=== PATIENT | male | born 1970 | race Caucasian/White ===

== ENCOUNTER 2021-05-31 00:58 | Emergency (ER) | payer OTHER, SELFPAY ==
[2021-05-31 01:05] VITALS: BP 108/72; PULSE 84; RESP 18; TEMP 36.4; O2SAT 94; BMI 32.7
--- NOTE | 2021-05-31 01:27 | ECG_ITS ---
[facility] Test Date: 2021-05-31 Pat Name: Jb Perez Department: Room: Gender: Male Psychologist Counseling: : 1970 Requested By: Horacio Figueroa Order Number: [id number] Carie MD: KEVIN ZARAGOZA Measurements Intervals [place] Rate: 82 P: 46 ID: [id number] QRS: 60 QRSD: 115 T: 47 QT: 355 QTc: 416 Interpretive Statements SINUS RHYTHM MODERATE INTRAVENTRICULAR CONDUCTION DELAY [110+ ms QRS DURATION] Compared to ECG 12/07/2018 14:53:35 Intraventricular conduction delay now present Sinus bradycardia no longer present Sinus arrhythmia no longer present Electronically Signed On 05-31-2021 18:34:43 CDT by KEVIN ZARAGOZA [id number]
[2021-05-31] MEDS: ondansetron 2 mg/ML SDV 2 mL 4 MG IVP (01:36)
[2021-05-31] MEDS: famotidine 20 mg/2 mL INJ IVP (01:37)
[2021-05-31] MEDS: diphenhydrAMINE 50 mg/mL SDV 1mL IVP (01:37)
[2021-05-31 01:46] VITALS: BP 118/81; PULSE 73; RESP 18; O2SAT 97
--- NOTE | 2021-05-31 02:53 | ED_ITS ---
HPI - Allergic Reaction General: Chief complaint: Allergic Reaction Stated complaint: Allergic Reaction Itching Time Seen by Provider: 05/31/21 01:15 History of Present Illness: HPI narrative: 51-year-old male who ate dinner around 10 PM. A little over an hour later, he began to notice itching and rash. He then began to have chest tightness and trouble breathing. He had an episode of diarrhea. He says that his lips were burning as well at 1 point. He was incredibly weak by this time. He began to drive himself to the emergency department, during which time he felt worse, and called an ambulance. His symptoms began to improve by the time the ambulance got there, so he finished driving himself here. He presents with itching, redness, and lips burning currently. MD complaint: allergic reaction and hives Onset (ago): hour(s) Exposure: unknown Associated symptoms: Reports difficulty breathing, dizziness, itching, lip swelling, nausea and vomiting; Deny dysphagia or tongue swelling Severity: moderate Treatment prior to arrival: none Review of Systems Const: Denies: fever(s) or chills Eyes: Denies: change in vision Card: Reports: chest pain Resp: Reports: dyspnea and non-productive cough; Denies: wheezing GI: Reports: nausea and vomiting; Denies: dysphagia Neuro: Reports: dizziness All/Imm: Denies: tongue swelling Physical Exam Const: COMMON NORMALS: patient oriented x3 GENERAL APPEARANCE: in distress (Mild) and ill appearing (Mildly) HENMT: COMMON NORMALS: normocephalic and Normal nasal mucous membranes and turbinates present HEAD & SCALP: normocephalic FACE & SINUS: normal facial exam NOSE: Normal nasal mucous membranes and turbinates present MOUTH: tongue normal Neck/C-Spine: GENERAL: Yes normal visual inspection Chest: COMMONS NORMALS: normal inspection of the chest Resp: COMMON NORMALS: No use of accessory muscles and clear to auscultation bilaterally EFFORT & INSPECTION: Yes tachypneic AUSCULTATION: clear to auscultation bilaterally Cardio: COMMON NORMALS: regular rhythm RATE: tachycardic RHYTHM: regular rhythm GI: COMMON NORMALS: Normal to inspection, nondistended, normoactive bowel sounds present and Soft to palpation PALPATION: Yes Soft to palpation Neuro: COMMON NORMALS: patient oriented x3 Skin: NARRATIVE SKIN EXAM: Urticaria present on extremities. Course Vital Signs: Vital signs: Vital Signs Temperature 97.6 F 05/31/21 01:05 Pulse Rate 68 05/31/21 03:41 Respiratory Rate 14 05/31/21 03:41 Blood Pressure 93/64 05/31/21 03:41 Pulse Oximetry 94 05/31/21 03:41 MDM - Allergic Reaction MDM Narrative: Medical decision making narrative: 51-year-old male presenting with an allergic reaction, historically what sounds like anaphylaxis, likely to a food antigen. He was actually improved by the time of his arrival. He was given Solu-Medrol Pepcid and Benadryl here with resolution of his symptoms save a mild itch. He will be allowed home on a decreasing dose of steroid, Benadryl for the next 24 hours, and an EpiPen to use if return of the symptoms comes about. Discharge Plan Discharge Patient Disposition: Home Clinical Impression: Allergic reaction Qualifiers: Encounter type: initial encounter Qualified Code(s): T78.40XA - Allergy, unspecified, initial encounter Condition: Stable Prescriptions: New Medrol (Iglesia) 4 mg tablets,dose pack See Rx Instructions .ROUTE .COMPLEX Qty: 21 RF: 0 Benadryl 25 mg capsule 25 mg PO Q6H PRN (Reason: allergy symptoms) Qty: 30 RF: 0 EpiPen 2-Iglesia 0.3 mg/0.3 mL auto-injector 0.3 mg IM Q10M PRN (Reason: anaphylaxis) Qty: 2 RF: 1 Discharge Orders: Discharge ED (Routine); Ordered 05/31/21 Ordered By: Horacio Hua Discharge Activity: Increase activity as tolerated Patient Instructions: Allergic Reaction Activity Restrictions/Additional Instructions: Return for return of symptoms such as trouble breathing, facial swelling, return of hives, any other concerning symptoms. If you have another reaction, and are having trouble with chest tightness and breathing, consider using your EpiPen. If you do so, you must return to the ER. Coding Level of Care Code ED Drill Press Set Up Operator for Noah Clayton
[2021-05-31 03:41] VITALS: BP 93/64; PULSE 68; RESP 14; O2SAT 94
== END 2021-05-31 03:38 | disposition home or self-care (01) ==
PROVIDERS: Emergency Provider Emergency Medicine
DX: T78.40XA Allergy, unspecified, initial encounter (principal)
CPT/HCPCS: 93005; 96374; 96375; 99283; J1200; J2405; J2930; J3490

== ENCOUNTER 2021-10-07 13:21 | Outpatient (RCR) | payer OTHER, SELFPAY | END 2021-10-25 23:59 | disposition home or self-care (01) | LOC: SPT 13:21 | PROVIDERS: PCP Emergency Medicine Emergency Medical Services; Visit Provider Emergency Medicine Emergency Medical Services | DX: M25.512 Pain in left shoulder (principal) | CPT/HCPCS: 97110; 97161 ==

== ENCOUNTER 2021-10-26 06:00 | Outpatient (RCR) | payer OTHER, SELFPAY | END 2021-11-22 23:59 | disposition home or self-care (01) | LOC: SPT 06:00 | PROVIDERS: PCP Emergency Medicine Emergency Medical Services; Visit Provider Emergency Medicine Emergency Medical Services | DX: M25.512 Pain in left shoulder (principal) | CPT/HCPCS: 97110 ==

== ENCOUNTER 2021-11-23 06:00 | Outpatient (RCR) | payer OTHER, SELFPAY | END 2021-12-23 23:59 | disposition home or self-care (01) | LOC: SPT 06:00 | PROVIDERS: PCP Emergency Medicine Emergency Medical Services; Visit Provider Emergency Medicine Emergency Medical Services | DX: M25.512 Pain in left shoulder (principal) | CPT/HCPCS: 97110; 97140 ==

== ENCOUNTER → 2021-12-20 15:39 | Outpatient (BNVA) | payer OTHER, SELFPAY | PROVIDERS: PCP Emergency Medicine Emergency Medical Services; Referring Provider Emergency Medicine Emergency Medical Services; Visit Provider Specialist | DX: M25.512 Pain in left shoulder (principal) | CPT/HCPCS: 73030 ==

== ENCOUNTER → 2022-04-11 10:47 | Outpatient (BNVA) | payer OTHER, SELFPAY | PROVIDERS: PCP Emergency Medicine Emergency Medical Services; Referring Provider Emergency Medicine Emergency Medical Services; Visit Provider Specialist | DX: S83.289A Other tear of lateral meniscus, current injury, unspecified knee, initial encounter (principal); X58.XXXA Exposure to other specified factors, initial encounter; M25.561 Pain in right knee | CPT/HCPCS: 73560; 73565; 99213 ==

== ENCOUNTER 2022-10-25 00:28 | Emergency (ER) | payer OTHER, SELFPAY ==
[2022-10-25 00:38] VITALS: BP 120/72; PULSE 105; RESP 20; TEMP 36.8; O2SAT 94; BMI 32.5
--- NOTE | 2022-10-25 00:45 | XRR_ITS ---
PROCEDURE INFORMATION: Exam: XR Chest Exam date and time: 10/25/2022 12:57 AM Age: 52 years old Clinical indication: Other: Allergic reaction; Patient HX: Rash to trunk and arms. C/O chest tightness. ; Additional info: Chest pain TECHNIQUE: Imaging protocol: Radiologic exam of the chest. Views: 1 view. COMPARISON: CR XR shoulder LT min 2V* [id number] 12/20/2021 4:21 PM FINDINGS: Lungs: Unremarkable. No consolidation. Pleural spaces: Unremarkable. No pleural effusion. No pneumothorax. Heart/Mediastinum: Unremarkable. No cardiomegaly. Bones/joints: Unremarkable. XR/XR chest 1V portable [id number] IMPRESSION: No acute findings.
--- NOTE | 2022-10-25 00:49 | W.ED.ALLEREA ---
HPI - Allergic Reaction General: Chief complaint: Allergic Reaction Stated complaint: Hive\Lips Numb\Throat Tight Time Seen by Provider: 10/25/22 00:31 Source: patient Mode of arrival: ambulatory Limitations: no limitations History of Present Illness: HPI narrative: 52-year-old male has history of allergic reactions in the past. He states that roughly an hour to hour and a half ago he started to have rash to his trunk and arms he states that he felt like his chest was tightening and his throat was tightening as well with some shortness of breath he did give himself an EpiPen 30 minutes before arrival he states that he is feeling improved his chest pain is resolved his breathing is improved he still does have a rash to his trunk states he has had this in the past he is unsure what he is allergic to his blood pressure here is normal Associated symptoms: Deny abdominal pain, nausea or vomiting Review of Systems Const: Denies: fever(s), chills, body aches or change in appetite Eyes: Denies: blurry vision or eye discomfort ENMT: Denies: throat pain or dental pain Card: Denies: chest pain Resp: Reports: dyspnea and wheezing GI: Denies: abdominal pain, nausea, vomiting or diarrhea : Denies: dysuria Musc: Denies: neck pain or back pain Skin/Breast: Reports: rash and pruritus Neuro: Denies: headache(s) Psych: Denies: depression Deepak/Lymph: Denies: easy bruising All/Imm: Denies: urticaria PFSH ED PFSH: Medical History No pertinent past medical history Social History Smoking and tobacco status: former smoker (4 years ) Physical Exam Const: COMMON NORMALS: no acute distress, patient oriented x3 and healthy appearing HENMT: COMMON NORMALS: normocephalic and atraumatic HEAD & SCALP: normocephalic and atraumatic Eye: COMMON NORMALS: Equal, round and reactive pupils present and EOMs intact bilaterally PUPIL: Yes Equal, round and reactive pupils present Neck/C-Spine: COMMON NORMALS: full ROM and supple Chest: COMMONS NORMALS: normal inspection of the chest and normal palpation of entire chest wall Resp: COMMON NORMALS: normal respiratory effort, No retractions, No use of accessory muscles and clear to auscultation bilaterally AUSCULTATION: clear to auscultation bilaterally Cardio: COMMON NORMALS: regular rate, regular rhythm and No murmurs present (Cardio) RATE: regular rate RHYTHM: regular rhythm GI: COMMON NORMALS: Normal to inspection, nondistended, normoactive bowel sounds present, Soft to palpation, non-tender and no masses PALPATION: Yes Soft to palpation Extremity: COMMON NORMALS: normal to inspection and full ROM Neuro: COMMON NORMALS: patient oriented x3, moves all extremities and no focal motor deficits Psych: COMMON NORMALS: mental status grossly normal, Normal thought process present and cooperative THOUGHT PROCESS: Normal thought process present Skin: COMMON NORMALS: no wounds NARRATIVE SKIN EXAM: Urticarial rash to trunk Course Vital Signs: Vital signs: Vital Signs Temperature 98.3 F 10/25/22 00:38 Pulse Rate 77 10/25/22 02:00 Respiratory Rate 16 10/25/22 02:00 Blood Pressure 106/69 10/25/22 02:00 Pulse Oximetry 94 10/25/22 02:00 Oxygen Delivery Me thod 10/25/22 00:56 MDM - Allergic Reaction Medical Decision Making Patient presents with allergic reaction he did give himself EpiPen at home I did give him Benadryl steroids and Pepcid here he feels much improved his rash is improved as well I believe his chest pain he was having was likely from his allergic reaction no signs of cardiac cause he had gotten better after his appendectomy his EKG here is normal blood work is normal we will prescribe him prednisone for 5 days and will refill his EpiPen he is to follow-up with his PCP in 2 to 4 days return if worsening he understands agrees to plan. Lab Data 10/25/22 00:55 10/25/22 00:55 Radiology Impressions Chest X-Ray 10/25/22 00:45 IMPRESSION: No acute findings. Laboratory Results WBC 13.9 10^3/uL (4.0-10.0) H 10/25/22 00:55 RBC 4.73 10^6/uL (4.1-5.3) 10/25/22 00:55 Hgb 15.0 g/dL (11.7-16.6) 10/25/22 00:55 Hct 45.3 % (42.0-52.0) 10/25/22 00:55 MCV 95.8 fl (80-94) H 10/25/22 00:55 MCH 31.7 pg (28.0-34.0) 10/25/22 00:55 MCHC 33.1 g/dL (30.0-36.0) 10/25/22 00:55 RDW 12.1 % (12.1-15.1) 10/25/22 00:55 Plt Count 331 10^3/cmm (130-400) 10/25/22 00:55 MPV 9.6 fL (7.4-10.4) 10/25/22 00:55 Neut % (Auto) 69.8 % 10/25/22 00:55 Lymph % (Auto) 24.8 % 10/25/22 00:55 Cache % (Auto) 4.5 % 10/25/22 00:55 Eos % (Auto) 0.4 % 10/25/22 00:55 Baso % (Auto) 0.1 % 10/25/22 00:55 Neut # (Auto) 9.66 10^3/uL (1.8-7.7) H 10/25/22 00:55 Lymph # (Auto) 3.4 10^3/uL (0.8-4.8) 10/25/22 00:55 Cache # (Auto) 0.6 10^3/uL (0.2-0.9) 10/25/22 00:55 Eos # (Auto) 0.1 10^3/uL (0.0-0.8) 10/25/22 00:55 Baso # (Auto) 0.0 10^3/uL (0.0-0.1) 10/25/22 00:55 Nucleated RBC % (auto) 0 % 10/25/22 00:55 Nucleated RBCs # 0.0 /100WBC 10/25/22 00:55 Sodium 137 mmol/L (136-145) 10/25/22 00:55 Potassium 3.7 mmol/L (3.5-5.1) 10/25/22 00:55 Chloride 99 mmol/L (98-107) 10/25/22 00:55 Carbon Dioxide 21 mmol/L (22-29) L 10/25/22 00:55 Anion Gap 20.7 (5-19) H 10/25/22 00:55 BUN 29 mg/dL (6-20) H 10/25/22 00:55 Creatinine 1.5 mg/dL (0.7-1.2) H 10/25/22 00:55 GFR Calculation 49.3 mL/min (90-130) L 10/25/22 00:55 Glucose 229 mg/dL (65-115) H 10/25/22 00:55 Calculated Osmolality 297 mOsm/kg (285-295) H 10/25/22 00:55 Calcium 9.0 mg/dL (8.5-10.5) 10/25/22 00:55 Total Bilirubin 0.4 mg/dL (0.15-1.2) 10/25/22 00:55 AST 23 U/L (0-40) 10/25/22 00:55 ALT 27 U/L (0-41) 10/25/22 00:55 Alkaline Phosphatase 81 U/L (40-130) 10/25/22 00:55 Total Protein 7.5 g/dL (6.6-8.7) 10/25/22 00:55 Albumin 4.6 g/dL (3.5-5.2) 10/25/22 00:55 Globulin 2.9 g/dL (1.3-4.6) 10/25/22 00:55 Lipase 42 U/L (13-60) 10/25/22 00:55 EKG Data EKG 1: I personally reviewed and interpreted this EKG as follows: EKG interpretation date: 10/25/22 EKG interpretation time: 00:50 Interpretation: sinus tach hr [address] or t wave abnormalities qrs 109 qtc 398 Discharge Plan Discharge Patient Disposition: Home Clinical Impression: Allergic reaction Condition: Stable Prescriptions: New prednisone 50 mg tablet 50 mg PO DAILY Qty: 5 0RF EpiPen 2-Iglesia 0.3 mg/0.3 mL auto-injector 0.3 mg IM Q20M PRN (Reason: anaphylaxis) Qty: 2 0RF Rx Instructions: not to exceed 6 doses per episode No Action diazepam [Valium] 5 mg tablet 5 mg PO .COMPLEX Qty: 2 0RF Rx Instructions: 5 mg PO 1 tab 1 hour before MRI. Repeat prn 1/2 hour before MRI; Benadryl 25 mg capsule 25 mg PO Q6H PRN (Reason: allergy symptoms) Qty: 30 0RF EpiPen 2-Iglesia 0.3 mg/0.3 mL auto-injector 0.3 mg IM Q10M PRN (Reason: anaphylaxis) Qty: 2 1RF Rx Instructions: do not exceed 3 doses per episode Discharge Orders: Discharge ED (Routine); Ordered 10/25/22 Ordered By: Kat Barr Referrals: Krishna Gómez DO [Primary Care Provider] - 1-3 days Discharge Diet: Advance as tolerated Discharge Activity: Resume usual activity Patient Instructions: General Allergic Reaction (ED) Coding Level of Care Code ED It Program Engagement Director for Chg Fwd Exam Comprehensive
--- NOTE | 2022-10-25 00:50 | ECG_ITS ---
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 Measurements Intervals [place] Rate: 103 P: 57 AR: 140 QRS: 40 QRSD: 109 T: 12 QT: 338 QTc: 443 Interpretive Statements SINUS TACHYCARDIA ABNORMAL RHYTHM ECG Compared to ECG 05/31/2021 01:21:05 Sinus rhythm no longer present Intraventricular conduction delay no longer present Electronically Signed On 10-25-2022 16:03:10 HAT BRAIDER by Darby Aldridge M.D. [id number] f
[2022-10-25 00:56] VITALS: BP 122/80; PULSE 95; RESP 16; O2SAT 94
[2022-10-25] MEDS: ondansetron 2 mg/ML SDV 2 mL 4 MG IVP (00:56)
[2022-10-25] MEDS: diphenhydrAMINE 50 mg/mL SDV 1mL IVP (00:59)
[2022-10-25] MEDS: famotidine 20 mg/2 mL INJ 40 MG IVP (01:03)
[2022-10-25 01:13] LABS: Basophils % 0.1 %; Eosinophils # 0.1 10^3/uL (0.0-0.8); Eosinophils % 0.4 %; Hematocrit 45.3 % (42.0-52.0); Lymphocytes # 3.4 10^3/uL (0.8-4.8); Lymphocytes % 24.8 %; Mean Corpuscular HGB Conc 33.1 g/dL (30.0-36.0); Mean Corpuscular Hemoglobin 31.7 pg (28.0-34.0); Mean Corpuscular Volume 95.8 fl (80-94); Mean Platelet Volume 9.6 fL (7.4-10.4); Monocytes # 0.6 10^3/uL (0.2-0.9); Monocytes % 4.5 %; Neutrophils # 9.66 10^3/uL (1.8-7.7); Neutrophils % 69.8 %; Nucleated Red Blood Cells % 0 %; Platelet Count 331 10^3/cmm (130-400); Red Blood Count 4.73 10^6/uL (4.1-5.3); Red Cell Distribution Width 12.1 % (12.1-15.1); White Blood Count 13.9 10^3/uL (4.0-10.0)
[2022-10-25 01:30] VITALS: BP 99/68; PULSE 81; RESP 18; O2SAT 90
[2022-10-25 01:35] LABS: Alanine Aminotransferase 27 U/L (0-41); Albumin Level 4.6 g/dL (3.5-5.2); Alkaline Phosphatase 81 U/L (40-130); Anion Gap 20.7 (5-19); Aspartate Amino Transferase 23 U/L (0-40); Blood Urea Nitrogen 29 mg/dL (6-20); Carbon Dioxide 21 mmol/L (22-29); Chloride 99 mmol/L (98-107); Globulin 2.9 g/dL (1.3-4.6); Glomerular Filtration Rate 49.3 mL/min (90-130); Glucose 229 mg/dL (65-115); Lipase 42 U/L (13-60); Osmolality Calculated 297 mOsm/kg (285-295); Potassium 3.7 mmol/L (3.5-5.1); Sodium 137 mmol/L (136-145); Total Bilirubin 0.4 mg/dL (0.15-1.2); Total Protein 7.5 g/dL (6.6-8.7)
--- NOTE | 2022-10-25 01:39 | PC.NURSE ---
Pt O2 saturation 89-90, pt placed on 2L NC. Pt O2 sat now 93
[2022-10-25 02:00] VITALS: BP 106/69; PULSE 77; RESP 16; O2SAT 94
== END 2022-10-25 02:18 | disposition home or self-care (01) ==
PROVIDERS: Nurse Practitioner Family; Emergency Provider Emergency Medicine; PCP Emergency Medicine Emergency Medical Services
DX: T78.40XA Allergy, unspecified, initial encounter (principal); Z87.891 Personal history of nicotine dependence
CPT/HCPCS: 71045; 80053; 83690; 85025; 93005; 96374; 96375; 99285; J1200; J2405; J2930; J3490

== ENCOUNTER 2022-10-26 11:07 | Outpatient (CLI) | payer OTHER, SELFPAY ==
--- NOTE | 2022-10-26 11:36 | MR_ITS ---
WS: [id number] MRI LUMBAR SPINE NONCONTRAST TECHNIQUE: Sagittal T1, T2 and STIR imaging. Axial T1 and T2 imaging. CLINICAL INFORMATION: LOW BACK PAIN COMPARISON: None. FINDINGS: Mild lumbar curve. No acute compression. No high-grade central canal stenosis. Tiny annular tear L5-S 1. L1-L2: Normal. L2-L3: Tiny LEFT foraminal protrusion with mild LEFT foraminal narrowing. Spinal canal and RIGHT fora men are patent. L3-L4: Small RIGHT foraminal protrusion with a small annular fissure. Slight impingement on the exiti ng RIGHT L3 nerve root with mild RIGHT foraminal narrowing. LEFT foramen is patent. Spinal canal is p atent. Mild facet arthropathy. L4-L5: Tiny LEFT foraminal protrusion slightly contacts the exiting LEFT L4 nerve root. Mild LEFT for aminal narrowing. Spinal canal and foramen are patent. Moderate facet arthropathy. L5-S1: Mild annular bulging. Tiny annular fissure. Spinal canal and foramen are patent. Moderate face t arthropathy. Visualized pelvic bony structures: Normal. Paravertebral soft tissues: Normal. MR/MR lumbar spine wo con* [id number] IMPRESSION: 1. Mild lumbar curve. No acute compression. No high-grade central canal stenos is. 2. Small RIGHT foraminal protrusion L3-L4 with small annular fissure slightly impinges the exiting RIGHT L3 nerve root. 3. Tiny LEFT foraminal protrusion L4-L5 with mild LEFT L4-L5 foraminal narrowi ng. 4. Tiny LEFT foraminal protrusion L2-L3 with mild LEFT foraminal narrowing wit hout significant nerve root impingement. 5. Mild annular bulging L5-S1 with a small annular fissure. 6. Moderate facet arthropathy L4-L5 and L5-S1.
== END 2022-10-26 11:08 | disposition home or self-care (01) ==
LOC: RAD 11:09
PROVIDERS: PCP Emergency Medicine Emergency Medical Services; Visit Provider Emergency Medicine Emergency Medical Services
DX: Z01.89 Encounter for other specified special examinations (principal)
CPT/HCPCS: 72148

== ENCOUNTER 2023-03-01 14:08 | Outpatient (RCR) | payer OTHER, SELFPAY | END 2023-03-24 23:59 | disposition home or self-care (01) | LOC: SPT 14:08 | PROVIDERS: PCP Emergency Medicine Emergency Medical Services; Visit Provider Emergency Medicine Emergency Medical Services | DX: M54.50 Low back pain, unspecified (principal) | CPT/HCPCS: 97110; 97161 ==

== ENCOUNTER → 2023-03-02 10:36 | Outpatient (BNVA) | payer OTHER, SELFPAY | PROVIDERS: PCP Emergency Medicine Emergency Medical Services; Visit Provider Anesthesiology Pain Medicine | DX: M46.96 Unspecified inflammatory spondylopathy, lumbar region (principal); M46.97 Unspecified inflammatory spondylopathy, lumbosacral region | CPT/HCPCS: 99205 ==

== ENCOUNTER → 2023-12-21 14:49 | Outpatient (BNVA) | payer OTHER, SELFPAY | PROVIDERS: PCP Emergency Medicine Emergency Medical Services; Visit Provider Orthopaedic Surgery | DX: M54.50 Low back pain, unspecified; G89.29 Other chronic pain | CPT/HCPCS: 99204 ==

== ENCOUNTER 2024-02-21 14:49 | Outpatient (CLI) | payer OTHER, SELFPAY ==
--- NOTE | 2024-02-21 14:57 | MR_ITS ---
WS: [id number] MRI LUMBAR SPINE NONCONTRAST HISTORY: LOW BACK PAIN WORSENING COMPARISON: 10/26/2022 TECHNIQUE: Sagittal and axial multisequence imaging is submitted. Very slight increase in thoracic kyphosis. Posterior alignment is normal. There is a small amount of marrow edema in the anterior superior L3 en dplate. This is new since the prior study. No fractures. Disc spaces are relatively well-preserved. Disc spaces and vertebral body heights are well-preserved. Conus terminates normally at L1-2 disc level. L1-L2: Normal. L2-L3: Mild disc bulging. Very shallow LEFT foraminal disc protrusion as seen on the prior examinatio n with no stenosis. The disc protrusion actually appears slightly smaller in size. L3-L4: Mild annular disc bulging. RIGHT foraminal disc protrusion with annular fissure. Similar to th e prior study. Slight impingement upon the exiting RIGHT L3 nerve root. Mild foraminal narrowing. Mil d facet arthritis. L4-L5: Mild annular disc bulging with ligamentum flavum and facet arthritis. Small LEFT foraminal dis c protrusion with annular fissure. Mild LEFT foraminal narrowing. Mild facet arthritis. L5-S1: Mild annular disc bulging tiny annular fissure to the LEFT of midline. Mild facet arthritis. N o stenosis. Paravertebral soft tissues are normal. MR/MR lumbar spine wo con* [id number] IMPRESSION: 1. No high-grade central or foraminal stenosis. No significant progression of degenerative disc disease or stenosis since the prior study. 2. Slight decrease in size of the previously described LEFT L2-3 disc protrusi on. 3. Small RIGHT foraminal disc protrusion at L3-4 with minimal impingement upon the exiting RIGHT L3 nerve root. 4. Mild LEFT foraminal narrowing at L4-5 with a small foraminal disc protrusio n. 5. New focal marrow edema in the superior anterior L3 vertebral body.
== END 2024-02-21 14:50 | disposition home or self-care (01) ==
PROVIDERS: PCP Emergency Medicine Emergency Medical Services; Visit Provider Emergency Medicine Emergency Medical Services
DX: M51.26 Other intervertebral disc displacement, lumbar region (principal); M48.061 Spinal stenosis, lumbar region without neurogenic claudication; R60.0 Localized edema
CPT/HCPCS: 72148

== ENCOUNTER → 2024-03-19 13:48 | Outpatient (BNVA) | payer OTHER, SELFPAY | PROVIDERS: PCP Emergency Medicine Emergency Medical Services; Visit Provider Orthopaedic Surgery | DX: M54.9 Dorsalgia, unspecified (principal); M48.062 Spinal stenosis, lumbar region with neurogenic claudication | CPT/HCPCS: 99214 ==

== ENCOUNTER 2024-05-05 19:33 | Emergency (ER) | payer OTHER, SELFPAY ==
[2024-05-05 19:41] VITALS: BP 124/77; PULSE 77; RESP 18; TEMP 36.1; O2SAT 97; BMI 33.1
--- NOTE | 2024-05-05 20:50 | ED_ITS ---
HPI - Back Pain/Injury General: Chief Complaint: Back Pain/Injury Stated Complaint: Lower back pain Time Seen by Provider: 05/05/24 19:48 History of Present Illness: 53-year-old male patient comes in today with low back pain. Patient states that he was pulling weeds couple days ago and aggravated his back. Patient does have chronic back problems with some intervertebral disc disease and some sciatica. Patient had a recent MRI done. Patient reports no falls or other injuries. Related Data Previous Rx's Medication Instructions Recorded diphenhydramine HCl 25 mg capsule 25 mg PO Q6H PRN allergy symptoms 05/31/21 (Benadryl) #30 caps epinephrine 0.3 mg/0.3 mL 0.3 mg (0.3 mL) IM Q10M PRN 05/31/21 injection, auto-injector (EpiPen anaphylaxis #2 ea 2-Iglesia) epinephrine 0.3 mg/0.3 mL 0.3 mg (0.3 mL) IM Q20M PRN 10/25/22 injection, auto-injector (EpiPen anaphylaxis #2 ea 2-Iglesia) diclofenac sodium 75 mg 75 mg PO BID #20 tabs 05/05/24 tablet,delayed release methocarbamol 750 mg tablet 1,500 mg (2 x 750 mg) PO TID PRN 05/05/24 muscle spasm 7 days #42 tabs prednisone 20 mg tablet 20 mg PO BID 7 days #14 tabs 05/05/24 Allergies Allergy/AdvReac Type Severity Reaction Status Date / Time Sulfa (Sulfonamide Allergy ALGY-Rash Verified 05/05/24 19:43 Antibiotics) Review of Systems General: Reports: 10 or more systems reviewed and unremarkable except in HPI and below Musc: Reports: back pain PFSH ED PFSH: Medical History No pertinent past medical history Social History Smoking and tobacco/nicotine status: former use of tobacco/nicotine (4 years ) Physical Exam Const: COMMON NORMALS: alert HENMT: COMMON NORMALS: normocephalic HEAD & SCALP: normocephalic Neck/C-Spine: COMMON NORMALS: full ROM Resp: COMMON NORMALS: normal respiratory effort Cardio: COMMON NORMALS: regular rate RATE: regular rate Extremity: COMMON NORMALS: normal to inspection Neuro: SENSORIUM/ORIENTATION: Yes alert Skin: COMMON NORMALS: turgor normal GENERAL SKIN EXAM: turgor normal Course Vital Signs: Vital signs: Vital Signs Temperature 97 F L 05/05/24 19:41 Pulse Rate 73 05/05/24 21:20 Respiratory Rate 16 05/05/24 21:20 Blood Pressure 130/78 05/05/24 21:20 Pulse Oximetry 93 05/05/24 21:20 Oxygen Delivery Me thod Room Air 05/05/24 19:41 MDM - Back Pain/Injury Medical Decision Making 53-year-old male patient comes in today for complaints of low back pain. Patient appears nontoxic. Patient appears in mild to moderate pain. Differential diagnosis exacerbation of chronic back pain, intervertebral disc disease, facet arthropathy, sciatica, lumbar strain. Patient was given 40 mg of prednisone x 1, 30 mg ketorolac x 1, and 4 mg of morphine. Patient will be continued on methocarbamol, diclofenac, and prednisone. Patient had improvement of pain after injections and was discharged home with need for follow-up with specialist. No radiology studies performed this visit Discharge Plan Discharge Patient Disposition: Home Clinical Impression: Intervertebral disc disorder, Lumbar stenosis with neurogenic claudication Condition: Stable Prescriptions: New diclofenac sodium 75 mg tablet,delayed release (DR/EC) 75 mg PO BID Qty: 20 0RF prednisone 20 mg tablet 20 mg PO BID 7 Days Qty: 14 0RF methocarbamol 750 mg tablet 1,500 mg PO TID PRN (Reason: muscle spasm) 7 Days Qty: 42 0RF No Action Benadryl 25 mg capsule 25 mg PO Q6H PRN (Reason: allergy symptoms) Qty: 30 0RF EpiPen 2-Iglesia 0.3 mg/0.3 mL auto-injector 0.3 mg IM Q10M PRN (Reason: anaphylaxis) Qty: 2 1RF Rx Instructions: do not exceed 3 doses per episode EpiPen 2-Iglesia 0.3 mg/0.3 mL auto-injector 0.3 mg IM Q20M PRN (Reason: anaphylaxis) Qty: 2 0RF Rx Instructions: not to exceed 6 doses per episode Discharge Orders: Discharge ED (Routine); Ordered 05/05/24 Ordered By: David Mayorga Referrals: Krishna Gómez DO [Primary Care Provider] - Discharge Diet: Usual diet Discharge Activity: Increase activity as tolerated Patient Instructions: Degenerative Disc Disease (ED) Activity Restrictions/Additional Instructions: Try to maintain your normal activity as much as possible. Gentle stretching and range of motion exercises. Follow-up with primary care or specialist for further evaluation and treatment. Return to ER for new concerns. Coding Level of Care Code ED Construction Ironworker for Noah Clayton
[2024-05-05] MEDS: ketorolac 30 mg/mL INJ IM (21:08)
[2024-05-05 21:12] VITALS: RESP 18
[2024-05-05] MEDS: morphine 4 mg/mL SDV 1 mL IM (21:12)
[2024-05-05 21:20] VITALS: BP 130/78; PULSE 73; RESP 16; O2SAT 93
[2024-05-05] MEDS: predniSONE 20 mg Tablet 40 MG PO (21:30)
== END 2024-05-05 21:32 | disposition home or self-care (01) ==
PROVIDERS: Emergency Provider Nurse Practitioner Family; PCP Emergency Medicine Emergency Medical Services
DX: M48.062 Spinal stenosis, lumbar region with neurogenic claudication (principal); Z87.891 Personal history of nicotine dependence
CPT/HCPCS: 96372; 99284; J1885; J2270; J7512

== ENCOUNTER → 2024-06-18 10:00 | Outpatient (BNVA) | payer OTHER, SELFPAY | PROVIDERS: PCP Emergency Medicine Emergency Medical Services; Visit Provider Psychiatry & Neurology Neurology | DX: M54.2 Cervicalgia (principal); G89.29 Other chronic pain; M48.062 Spinal stenosis, lumbar region with neurogenic claudication; G62.9 Polyneuropathy, unspecified; S06.9XAA Unspecified intracranial injury with loss of consciousness status unknown, initial encounter; G44.309 Post-traumatic headache, unspecified, not intractable; G43.019 Migraine without aura, intractable, without status migrainosus; R20.2 Paresthesia of skin; M79.601 Pain in right arm; M79.602 Pain in left arm; S16.1XXA Strain of muscle, fascia and tendon at neck level, initial encounter; S29.019A Strain of muscle and tendon of unspecified wall of thorax, initial encounter; S39.012A Strain of muscle, fascia and tendon of lower back, initial encounter; X58.XXXA Exposure to other specified factors, initial encounter | CPT/HCPCS: 99203; 99204 ==

== ENCOUNTER 2024-08-12 18:46 | Emergency (ER) | payer OTHER, SELFPAY ==
[2024-08-12 18:54] VITALS: BP 126/86; PULSE 89; RESP 18; TEMP 36.4; O2SAT 98
--- NOTE | 2024-08-12 19:12 | W.ED.WOUNDLC ---
HPI - Wound/Laceration General: Chief Complaint: Wound/Laceration Stated Complaint: left hand lac Time Seen by Provider: 08/12/24 19:00 Source: patient Mode of arrival: ambulatory Limitations: no limitations History of Present Illness: Patient is a 54-year-old male who presents the emergency department due to laceration to palmar aspect of left hand prior to arrival. Patient's dog bit him, exudations are up-to-date and it is his personal dog. States this was somewhat provoked, no abnormal symptoms from the dog and rabies vaccination is specifically up-to-date. No distal neurovascular symptoms reported. No foreign body, laceration is to the palmar aspect of the left fourth MCP, no foreign body or contamination. Unknown if tetanus is up-to-date. Extremity Location: Left: hand Patient tetanus UTD: No Context: accidental Associated symptoms: Denies chills, fever(s), nausea or vomiting Treatments prior to arrival: bandage Related Data Home Medications Medication Instructions Recorded Confirmed omega 9-qqj-rnu-fish oil 300 1 cap PO DAILY 06/18/24 06/18/24 mg-1,000 mg capsule (Fish Oil) Previous Rx's Medication Instructions Recorded diphenhydramine HCl 25 mg capsule 25 mg PO Q6H PRN allergy symptoms 05/31/21 (Benadryl) #30 caps epinephrine 0.3 mg/0.3 mL 0.3 mg (0.3 mL) IM Q20M PRN 10/25/22 injection, auto-injector (EpiPen anaphylaxis #2 ea 2-Iglesia) diazepam 5 mg tablet (Valium) 5 mg PO BID PRN anxiety #2 tabs 07/18/24 cyclobenzaprine 10 mg tablet 10 mg PO TID PRN muscle spasm #90 07/22/24 tabs diclofenac sodium 75 mg 75 mg PO BID PRN pain #60 tabs 07/22/24 tablet,delayed release amoxicillin 875 mg-potassium 1 tab PO BID 10 days #20 tabs 08/12/24 clavulanate 125 mg tablet Allergies Allergy/AdvReac Type Severity Reaction Status Date / Time Sulfa (Sulfonamide Allergy ALGY-Rash Verified 06/18/24 09:37 Antibiotics) Review of Systems General: Reports: 10 or more systems reviewed and unremarkable except in HPI and below Const: Denies: fever(s) or chills Card: Denies: chest pain Resp: Denies: dyspnea GI: Denies: abdominal pain, nausea, vomiting or diarrhea Musc: Denies: extremity pain or joint pain Skin/Breast: Reports: new lesions (Dog bite left hand with laceration); Denies: rash, skin pain or skin tenderness Neuro: Denies: headache(s) PFS ED PFSH: Medical History No pertinent past medical history Social History Smoking and tobacco/nicotine status: former use of tobacco/nicotine Physical Exam Const: COMMON NORMALS: no acute distress, average body habitus, patient oriented x3, no limitations, healthy appearing, alert and well nourished HENMT: COMMON NORMALS: normocephalic and atraumatic HEAD & SCALP: normocephalic and atraumatic Neck/C-Spine: COMMON NORMALS: full ROM, no lymphadenopathy, supple and no meningeal signs Resp: COMMON NORMALS: normal respiratory effort, No use of accessory muscles and clear to auscultation bilaterally AUSCULTATION: clear to auscultation bilaterally Cardio: COMMON NORMALS: regular rate and regular rhythm RATE: regular rate RHYTHM: regular rhythm Extremity: COMMON NORMALS: full ROM and capillary refill normal Neuro: COMMON NORMALS: patient oriented x3 SENSORIUM/ORIENTATION: Yes alert MENINGEAL SIGNS: Yes no meningeal signs Skin: COMMON NORMALS: turgor normal NARRATIVE SKIN EXAM: Superficial linear laceration that is measuring about 2.5 cm to palmar aspect of patient's left hand, overlying fourth MCP joint. No active bleeding. No foreign body or contamination. GENERAL SKIN EXAM: turgor normal Procedures Laceration Laceration 1: Site: hand Side (If applicable): left Size (cm): 2.5 Description: linear and clean Depth: simple, single layer Local Anesthetic: lidocaine 2% and with epi Amount of anesthesia used (mL): 3 Pre-repair: wound explored Skin layer closed with: nylon Size (cm): 4-0 Number of sutures: 3 Technique: simple, interrupted Course Vital Signs: Vital signs: Vital Signs Temperature 97.6 F 08/12/24 18:54 Pulse Rate 89 08/12/24 18:54 Respiratory Rate 18 08/12/24 18:54 Blood Pressure 126/86 08/12/24 18:54 Pulse Oximetry 98 08/12/24 18:54 Oxygen Delivery Me thod Room Air 08/12/24 18:54 MDM - Wound/Laceration Medical Decision Making Patient bit by his own dog, vaccinations up-to-date no concern for rabies. Tetanus was updated today. Wound was repaired, see procedure note. He will be started on Augmentin. Return precautions given. No radiology studies performed this visit Discharge Plan Discharge Patient Disposition: Home Clinical Impression: Laceration of left hand Qualifiers: Encounter type: initial encounter Foreign body presence: without foreign body Qualified Code(s): S61.412A - Laceration without foreign body of left hand, initial encounter Condition: Stable Prescriptions: New amoxicillin-pot clavulanate 875-125 mg tablet 1 tab PO BID 10 Days Qty: 20 0RF No Action omega 6-acw-jaa-fish oil [Fish Oil] 300-1,000 mg capsule 1 cap PO DAILY cyclobenzaprine 10 mg tablet 10 mg PO TID PRN (Reason: muscle spasm) Qty: 90 3RF diclofenac sodium 75 mg tablet,delayed release (DR/EC) 75 mg PO BID PRN (Reason: pain) Qty: 60 3RF diazepam [Valium] 5 mg tablet 5 mg PO BID PRN (Reason: anxiety) Qty: 2 0RF Rx Instructions: 1 p.o. 30 minutes to 60 minutes before MRI may repeat x 1 Benadryl 25 mg capsule 25 mg PO Q6H PRN (Reason: allergy symptoms) Qty: 30 0RF EpiPen 2-Iglesia 0.3 mg/0.3 mL auto-injector 0.3 mg IM Q20M PRN (Reason: anaphylaxis) Qty: 2 0RF Rx Instructions: not to exceed 6 doses per episode Discharge Orders: Discharge ED (Routine); Ordered 08/12/24 Ordered By: Navarro Calderon Referrals: Clair Jones MD [Primary Care Provider] - Patient Instructions: Laceration (ED) Activity Restrictions/Additional Instructions: Take Augmentin as prescribed. Sutures out in 5 days. Wound care as discussed, keep wound dry and out of the sun. When you clean, may dab with warm soap and water. Monitor for any severe increase in pain, swelling, discharge, or other signs of infection and return as discussed. Coding Level of Care Code ED Surgical Brace Maker for Noah Clayton
[2024-08-12] MEDS: amoxicillin-clav 875-125 mg Tablet 1 TAB PO (19:23)
[2024-08-12] MEDS: tetanus-dipt-pertussis 0.5 mL SDV IM (19:23)
== END 2024-08-12 20:15 | disposition home or self-care (01) ==
PROVIDERS: Emergency Provider Physician Assistant; PCP Family Medicine
DX: S61.412A Laceration without foreign body of left hand, initial encounter (principal); W54.0XXA Bitten by dog, initial encounter; Z87.891 Personal history of nicotine dependence
CPT/HCPCS: 12001; 90471; 90715; 99283

== ENCOUNTER → 2024-08-27 08:00 | Outpatient (BNVA) | payer OTHER, SELFPAY | PROVIDERS: PCP Family Medicine; Referring Provider Psychiatry & Neurology Neurology; Visit Provider Psychiatry & Neurology Neurology | DX: S39.012A Strain of muscle, fascia and tendon of lower back, initial encounter (principal); R20.2 Paresthesia of skin; M79.601 Pain in right arm; M79.602 Pain in left arm; X58.XXXA Exposure to other specified factors, initial encounter | CPT/HCPCS: 95913 ==

== ENCOUNTER 2025-01-15 10:37 | Outpatient (CLI) | payer OTHER, SELFPAY ==
--- NOTE | 2025-01-15 10:42 | MR_ITS ---
WS: [id number] MRI CERVICAL SPINE NONCONTRAST HISTORY: CERVICAL RADICULOPATHY COMPARISON: None available. Technique: Multiplanar, multisequence noncontrast imaging of the cervical spine. Normal cervical alignment with no compression fracture or significant disc space narrowing. Signal within the cervical cord is normal. Visualized posterior fossa is unremarkable. Craniocervical junction, C1 and C2 relationship, odontoid process and soft tissues are normal. C2-C3: Normal. C3-C4: Very mild osteophytosis. No stenosis. C4-C5: Very mild annular disc bulging and osteophytic ridging with mild facet arthritis. Mild bilateral foraminal stenosis. C5-C6: Normal. C6-C7: Normal. C7-T1: Normal. Paraspinal soft tissue are normal. MR/MR cervical spin wo con* [id number] IMPRESSION: 1. No high-grade central or foraminal stenosis. 2. No signal abnormality within the cord. 3. Very mild disc bulging and osteophytic ridging at C4-5. Minimal bilateral f oraminal stenosis.
--- NOTE | 2025-01-15 11:13 | MR_ITS ---
WS: [id number] MRI THORACIC SPINE noncontrast HISTORY: pain with mobility in upper extremity COMPARISON: None available. TECHNIQUE: Multiplanar sequences are performed in sagittal and axial planes. Mild increase in thoracic kyphosis. No fractures or marrow edema. Normal signal within the thoracic cord. T1-2: Normal. T2-3: Bilateral mild facet arthritis. T3-4: Mild facet arthritis. T4-5: Mild bilateral facet arthritis and mild foraminal narrowing. T5-6: Normal. T6-7: Normal. T7-8: Normal. T8-9: Mild bilateral facet arthritis. Minimal foraminal narrowing. T9-10: Bilateral mild facet arthritis and mild foraminal stenosis. T10-11: Mild facet arthritis and foraminal narrowing. T11-12: Normal. Paravertebral soft tissues are normal. MR/MR thoracic spin wo con* [id number] IMPRESSION: 1. No high-grade central or foraminal stenosis. 2. No signal abnormality within the cord. 3. Mild foraminal narrowing at T4-5, T8-9, T9-10 and T10-11. 4. No large central disc protrusions. Mild facet joint arthritis.
== END 2025-01-15 10:38 | disposition home or self-care (01) ==
PROVIDERS: PCP Family Medicine; Visit Provider Family Medicine
DX: M47.894 Other spondylosis, thoracic region (principal); M40.294 Other kyphosis, thoracic region; M48.04 Spinal stenosis, thoracic region; R93.7 Abnormal findings on diagnostic imaging of other parts of musculoskeletal system; M50.321 Other cervical disc degeneration at C4-C5 level; M25.78 Osteophyte, vertebrae; M47.892 Other spondylosis, cervical region; M48.02 Spinal stenosis, cervical region
CPT/HCPCS: 72141; 72146

== ENCOUNTER 2025-01-17 07:34 | Outpatient (CLI) | payer OTHER, SELFPAY ==
--- NOTE | 2025-01-17 07:40 | MR_ITS ---
WS: [id number] MRI RIGHT FOOT WITHOUT CONTRAST. COMPARISON: None Multiplanar, multisequence imaging is performed without contrast. History: Walking 3 weeks ago and felt pop in foot. Pain weightbearing. Large amount of marrow edema throughout nearly the entire cuboid. Low signal in the very distal cuboid is probably a nondisplaced fracture. This may be related to stress fracture. The cuneiforms and navicular are intact. Metatarsals are normal. Visualized talus and calcaneus are negative. There is a small amount of soft tissue edema over the lateral midfoot at the site of the marrow edema. Lisfranc ligament is intact. All 3 bands are normal. There is normal alignment between the tarsal bones and metatarsals. Peroneal tendon appears normal. Peroneal longus extends posterior to the abnormal cuboid but there is no signal abnormality or tear within the peroneal tendon. MR/MR foot RT wo con* [id number] IMPRESSION: 1. Edema throughout nearly the entire cuboid. Nondisplaced trabecular fracture s likely through the more distal cuboid. Consider stress fracture. 2. Lisfranc ligament is normal. 3. Soft tissue edema along the lateral foot.
== END 2025-01-17 07:35 | disposition home or self-care (01) ==
PROVIDERS: PCP Family Medicine; Visit Provider Family Medicine
DX: Z01.89 Encounter for other specified special examinations (principal); R93.6 Abnormal findings on diagnostic imaging of limbs; R60.0 Localized edema
CPT/HCPCS: 73718

== ENCOUNTER → 2025-02-11 13:27 | Outpatient (BNVA) | payer OTHER, SELFPAY | PROVIDERS: PCP Family Medicine; Visit Provider Podiatrist Foot & Ankle Surgery | DX: S92.214A Nondisplaced fracture of cuboid bone of right foot, initial encounter for closed fracture (principal); M20.21 Hallux rigidus, right foot; X58.XXXA Exposure to other specified factors, initial encounter | CPT/HCPCS: 73630 ==

== ENCOUNTER 2025-02-11 13:59 | Outpatient (CLI) | payer OTHER, SELFPAY | END 2025-02-11 14:00 | disposition home or self-care (01) | LOC: SPT 13:59 | PROVIDERS: PCP Family Medicine; Visit Provider Podiatrist Foot & Ankle Surgery | DX: Z46.89 Encounter for fitting and adjustment of other specified devices (principal); S92.211D Displaced fracture of cuboid bone of right foot, subsequent encounter for fracture with routine healing; X58.XXXD Exposure to other specified factors, subsequent encounter | CPT/HCPCS: L4361 ==

== ENCOUNTER 2025-03-10 01:14 | Inpatient (IN) | payer OTHER, SELFPAY ==
[2025-03-10] VITALS (21 sets, daily range): BP systolic 90–166; BP diastolic 48–77; PULSE 61–91; RESP 11–18; TEMP 36.4–37.2; O2SAT 92–98; BMI 35.6; BMI 33.7
[2025-03-10 01:57] LABS: Basophils # 0.1 10^3/uL (0.0-0.1); Basophils % 0.3 %; Eosinophils % 0.2 %; Hematocrit 40.9 % (37-53); Lymphocytes # 1.4 10^3/uL (0.8-4.8); Lymphocytes % 8.5 %; Mean Corpuscular Hemoglobin 31.7 pg (27-33); Mean Corpuscular Volume 93.2 fl (82-101); Mean Platelet Volume 9.6 fL (7.4-10.4); Monocytes # 0.6 10^3/uL (0.2-0.9); Monocytes % 3.4 %; Neutrophils # 14.21 10^3/uL (1.8-7.7); Neutrophils % 87.2 %; Nucleated Red Blood Cells % 0 %; Platelet Count 266 10^3/cmm (157-399); Red Blood Count 4.39 10^6/uL (3.85-5.65); White Blood Count 16.31 10^3/uL (3.29-11.43)
[2025-03-10] MEDS: ondansetron 2 mg/ML SDV 2 mL 4 MG IVP (02:06)
[2025-03-10] MEDS: morphine 4 mg/mL SDV 1 mL IVP ×3 (02:07→11:13)
[2025-03-10] MEDS: lidocaine 2% viscous 15 ML, aluminum-mag hydrox-simethicon 30 ML, sucralfate oral liq 1 GM PO (02:09)
[2025-03-10 02:12] LABS: Alanine Aminotransferase 30 U/L (0-41); Albumin Level 4.5 g/dL (3.5-5.2); Alkaline Phosphatase 74 U/L (40-130); Anion Gap 17.9 (5-19); Aspartate Amino Transferase 20 U/L (0-40); Blood Urea Nitrogen 14 mg/dL (6-20); Calcium 9.6 mg/dL (8.5-10.5); Carbon Dioxide 25 mmol/L (22-29); Chloride 100 mmol/L (98-107); Creatinine Clr Calc Pharmacy 137.4944; Globulin 3.1 g/dL (1.3-4.6); Glomerular Filtration Rate 88.3 mL/min (90-130); Glucose 135 mg/dL (65-115); Lipase 29 U/L (13-60); Osmolality Calculated 291 mOsm/kg (285-295); Potassium 3.9 mmol/L (3.5-5.1); Sodium 139 mmol/L (136-145); Total Bilirubin 0.3 mg/dL (0.15-1.2); Total Protein 7.6 g/dL (6.6-8.7)
[2025-03-10] MEDS: sodium chloride 0.9% 1,000 ML 999 ML IV (02:14)
--- NOTE | 2025-03-10 02:14 | ED_ITS ---
HPI - Abdominal Pain 2 General: Chief Complaint: Abdominal Pain Stated Complaint: V\ABD Pain Time Seen by Provider: 03/10/25 01:39 History of Present Illness: 54-year-old male gentleman with epigastr ic pain, multiple episodes of vomiting since around 1 PM yesterday. No fever. No diarrhea. No blood in the stool. No history of abdominal surgery. Related Data Home Medications ?Medication ?Instructions ?Recorded ?Confirmed omega 8-mvd-vse-fish oil 300 1 cap PO DAILY 06/18/24 0 02/11/25 mg-1,000 mg capsule (Fish Oil) Previous Rx's ?Medication ?Instructions ?Recorded diphenhydramine HCl 25 mg capsule 25 mg PO Q6H PRN all ergy symptoms 05/31/21 (Benadryl) #30 caps epinephrine 0.3 mg/0.3 mL 0.3 mg (0.3 mL) IM Q20M PRN 10/25/22 injection, auto-injector (EpiPen anaphylaxis #2 ea 2-Iglesia) cyclobenzaprine 10 mg tablet 10 mg PO TID PRN muscle s pasm #90 07/22/24 tabs diclofenac sodium 75 mg 75 mg PO BID PRN pain #60 ta bs 07/22/24 tablet,delayed release CAM walker #1 ea 02/11/25 orthopedic shoes and custom #2 ea 02/11/25 orthotics Allergies Allergy/AdvReac Type Severity Reaction Status Date / Time Sulfa (Sulfonamide Allergy ALGY-Rash Verified 03/10/25 01:26 Antibiotics) PFSH ED 2 PFSH: Medical History No pertinent past medical history Social History Smoking and tobacco/nicotine status: former use of tobacco/nicotine Physical Exam 2 Const: COMMON NORMALS: no acute distress GENERAL APPEARANCE: cooperative; not ill appearing and not frail appearing HENMT: COMMON NORMALS: normocephalic, atraumatic and Normal external nose present HEAD & SCALP: normocephalic and atraumatic FACE & SINUS: normal facial exam and face symmetric NOSE: Normal external nose present Eye: COMMON NORMALS: Equal, round and reactive pupils present and EOMs intact bilaterally PUPIL: Yes Equal, round and reactive pupils present Neck/C-Spine: GENERAL: Yes trachea midline Chest: CHEST: Yes Symmetrical chest wall rise Resp: COMMON NORMALS: normal respiratory effort, No retractions, No use of accessory muscles and clear to auscultation bilaterally AUSCULTATION: clear to auscultation bilaterally Cardio: COMMON NORMALS: regular rate and regular rhythm RATE: regular rate RHYTHM: regular rhythm GI: COMMON NORMALS: Normal to inspection, nondistended, normoactive bowel sounds present PALPATION: Yes Tenderness to palpation present (GI) (Epigastric) Details: RLQ and Yes Guarding due to palpation present (GI) Extremity: COMMON NORMALS: no pedal edema Neuro: EARNESTINE COMA SCALE: document GCS findings Grethel coma scale eye opening: Spontaneous Earnestine coma scale verbal response: Orientated Grethel coma scale motor response: Obey commands Earnestine coma scale total score: 15 S ENSORY EXAM: Yes extremities (intact) Psych: COMMON NORMALS: speech normal SPEECH: Yes normal speech Skin: COMMON NORMALS: no rashes or lesions noted GENERAL SKIN EXAM: no rashes or lesions noted Course 2 Vital Signs: Vital signs: Vital Signs Temperature 98.1 F 03/10/25 01:16 Pulse Rate 73 03/10/25 04:09 Respiratory Rate 15 03/10/25 04:09 Blood Pressure 131/59 03/10/25 04:09 Pulse Oximetry 94 03/10/25 04:09 Oxygen Delivery Me thod Room Air 03/10/25 02:15 MDM - Abdominal Pain Medical Decision Making Patient is afebrile. Vitals are normal. White blood cell count is 16. CRP is 3. CT abdomen pelvis was read as nonacute. By my measurement, what appears to be the appendix measures 11 mm, which is enlarged. The patient has intractable pain at this point, continues to be nauseated. Spoke with surgery. Plan is to observe this morning, surgery will evaluate, Zosyn IV every 8. Antiemetics and pain medication, IV fluid, n.p.o. Lab Data 03/10/25 01:44 03/10/25 01:44 Labs/Radiology: Radiology Impressions Abdomen/Pelvis CT 03/10/25 02:15 IMPRESSION: No acute pathologic findings in the abdomen/pelvis. Laboratory Results WBC 16.31 10^3/uL (3.29-11.43) H 03/10/25 01:44 RBC 4.39 10^6/uL (3.85-5.65) 03/10/25 01:44 Hgb 13.90 g/dL (11.27-16.99) 03/10/25 01:44 Hct 40.9 % (37-53) 03/10/25 01:44 MCV 93.2 fl (82-101) 03/10/25 01:44 MCH 31.7 pg (27-33) 03/10/25 01:44 MCHC 34.0 g/dL (30-55) 03/10/25 01:44 RDW 12.0 % (12.1-15.1) L 03/10/25 01:44 Plt Count 266 10^3/cmm (157-399) 03/10/25 01:44 MPV 9.6 fL (7.4-10.4) 03/10/25 01:44 Neut % (Auto) 87.2 % 03/10/25 01:44 Lymph % (Auto) 8.5 % 03/10/25 01:44 [place] % (Auto) 3.4 % 03/10/25 01:44 Eos % (Auto) 0.2 % 03/10/25 01:44 Baso % (Auto) 0.3 % 03/10/25 01:44 Neut # (Auto) 14.21 10^3/uL (1.8-7.7) H 03/10/25 01:44 Lymph # (Auto) 1.4 10^3/uL (0.8-4.8) 03/10/25 01:44 [place] # (Auto) 0.6 10^3/uL (0.2-0.9) 03/10/25 01:44 Eos # (Auto) 0.0 10^3/uL (0.0-0.8) 03/10/25 01:44 Baso # (Auto) 0.1 10^3/uL (0.0-0.1) 03/10/25 01:44 Nucleated RBC % (auto) 0 % 03/10/25 01:44 Nucleated RBCs # 0.0 /100WBC 03/10/25 01:44 Sodium 139 mmol/L (136-145) 03/10/25 01:44 Potassium 3.9 mmol/L (3.5-5.1) 03/10/25 01:44 Chloride 100 mmol/L (98-107) 03/10/25 01:44 Carbon Dioxide 25 mmol/L (22-29) 03/10/25 01:44 Anion Gap 17.9 (5-19) 03/10/25 01:44 BUN 14 mg/dL (6-20) 03/10/25 01:44 Creatinine 0.9 mg/dL (0.7-1.2) 03/10/25 01:44 GFR Calculation 88.3 mL/min (90-130) L 03/10/25 01:44 Glucose 135 mg/dL (65-115) H 03/10/25 01:44 Calculated Osmolality 291 mOsm/kg (285-295) 03/10/25 01:44 Calcium 9.6 mg/dL (8.5-10.5) 03/10/25 01:44 Total Bilirubin 0.3 mg/dL (0.15-1.2) 03/10/25 01:44 AST 20 U/L (0-40) 03/10/25 01:44 ALT 30 U/L (0-41) 03/10/25 01:44 Alkaline Phosphatase 74 U/L (40-130) 03/10/25 01:44 C-Reactive Protein 3.0 mg/L (0.0-4.9) 03/10/25 01:44 Total Protein 7.6 g/dL (6.6-8.7) 03/10/25 01:44 Albumin 4.5 g/dL (3.5-5.2) 03/10/25 01:44 Globulin 3.1 g/dL (1.3-4.6) 03/10/25 01:44 Lipase 29 U/L (13-60) 03/10/25 01:44 Urine Color Yellow (Yellow) 03/10/25 03:22 Urine Appearance Cloudy (CLEAR) A 03/10/25 03:22 Urine pH 8.5 (5-7) A 03/10/25 03:22 Ur Specific [place] 1.035 (1.005-1.030) H 03/10/25 03:22 Urine Protein Negative (Negative) 03/10/25 03:22 Urine Glucose (UA) Negative (Normal) 03/10/25 03:22 Urine Ketones Negative (Negative) 03/10/25 03:22 Urine Blood Negative (Negative) 03/10/25 03:22 Urine Nitrate Negative (Negative) 03/10/25 03:22 Urine Bilirubin Negative (Negative) 03/10/25 03:22 Urine Urobilinogen 0.2 mg/dL (Negative) 03/10/25 03:22 Ur Leukocyte Esterase Negative (Negative) 03/10/25 03:22 Urine RBC 0-2 /hpf (0-2) 03/10/25 03:22 Urine WBC 0-5 /hpf (0-5) 03/10/25 03:22 Ur Squamous Epith Cells 0-5 /hpf (0-5) 03/10/25 03:22 Amorphous Sediment Not Reportable 03/10/25 03:22 Urine Bacteria None seen /hpf (NONE) 03/10/25 03:22 Hyaline Casts 0-4 /lpf H 03/10/25 03:22 All radiology interpretation(s) finalized by discharge Discharge Plan Discharge Patient Disposition: Placed in Observation Clinical Impression: Abdominal pain Coding Level of Care Code ED Stable Helper for Noah Clayton
--- NOTE | 2025-03-10 02:15 | CTR_ITS ---
PROCEDURE INFORMATION: Exam: CT Abdomen And Pelvis With Contrast Exam date and time: 03/10/2025 2:26 AM Age: 54 years old Clinical indication: Nausea and vomiting; Abdominal pain; Epigastric pain with n/v; Additional info: Epigastric abdominal pain TECHNIQUE: Imaging protocol: Computed tomography of the abdomen and pelvis with contrast. Radiation optimization: All CT scans at this facility use at least one of these dose optimization techniques: automated exposure control; mA and/or kV adjustment per patient size (includes targeted exams where dose is matched to clinical indication); or iterative reconstruction. Contrast material: OMNI 350; Contrast volume: 100 ml; Contrast route: INTRAVENOUS (IV); COMPARISON: MR thoracic spin wo con* [id number] 01/15/2025 11:35 AM RADIATION DOSE METRICS: Total DLP (mGy-cm): 1116.26 FINDINGS: Lungs: Visualized lung bases are clear. Liver: The liver is unremarkable. Gallbladder and biliary ducts: The gallbladder is unremarkable. No biliary ductal dilatation. Pancreas: Mild atrophy of the pancreas. No pancreatic ductal dilation. Spleen: The spleen is unremarkable. Adrenal glands: The adrenal glands are unremarkable. Kidneys and ureters: Kidneys are normal. No hydronephrosis or nephrolithiasis. Stomach and bowel: No evidence of bowel obstruction. Appendix: No evidence of acute appendicitis. Intraperitoneal space: No significant free fluid in the abdomen or pelvis. No extraluminal free air. Vasculature: Mild scattered calcific atheromatous disease of the abdominal aorta and its major branches. No abdominal aortic aneurysm. Lymph nodes: No distinct pathologically enlarged lymphadenopathy. Urinary bladder: Urinary bladder is within normal limits. Reproductive: Visualized reproductive structures are within normal limits. Bones/joints: No acute osseous findings. Soft tissues: Small bilateral fat containing inguinal hernias. CT/CT abdomen pelvis w con* [id number] IMPRESSION: No acute pathologic findings in the abdomen/pelvis.
[2025-03-10] MEDS: iohexol 350 mg/mL 500 mL Btl (per mL) IV (02:27)
[2025-03-10 03:30] LABS: Bilirubin Urine Negative (Negative); Blood Urine Negative (Negative); Glucose Urine UA Negative (Normal); Ketones Urine Negative (Negative); Leukocyte Esterase Urine Negative (Negative); Nitrate Urine Negative (Negative); Protein Urine Negative (Negative); Urine Appearance Cloudy (CLEAR); Urine Color Yellow (Yellow); Urobilinogen Urine 0.2 mg/dL (Negative); pH Urine 8.5 (5-7)
[2025-03-10 03:34] LABS: Add Urine Microscopic? YES; Bacteria Urine None Seen /hpf; Hyaline Casts Urine 0-4 /lpf; RBC Urine 0-2 /hpf (0-2); Squamous Epithelial Cell Urine 0-5 /hpf (0-5); WBC Urine 0-5 /hpf (0-5)
[2025-03-10] MEDS: ketorolac 30 mg/mL INJ IVP (03:34)
[2025-03-10 03:36] LABS: Specific Gravity, Urine 1.035 (1.005-1.030)
[2025-03-10] MEDS: piperacillin-tazobactam 3.375 GM in sodium chloride 0.9% (plus) 50 ML IV ×3 (05:35→20:37)
[2025-03-10] MEDS: lactated ringers 1,000 ML 125 ML IV (06:12)
--- NOTE | 2025-03-10 07:22 | PC.PHAR ---
Addendum entered by Marlen Yang 03/10/25 08:56: [facility] Added all meds on list to pts' chart. Original Note: [facility] 03/10/25 7:20am for when they arrive at 8am
--- NOTE | 2025-03-10 08:04 | PC.PHAR ---
Pt states only takes [facility]. He does not know what strength. [facility] 03/10/25 8:05am
--- NOTE | 2025-03-10 09:45 | PM.HP ---
Providers/Chief Complaint Admitting Physician: Denis Young MD Primary Care Provider: Clair Jones MD Chief Complaint: V\ABD Pain History of Present Illness Jb Perez is a 54 year old male who presented with 12 hours of right lower quadrant pain. Tender to palpation right lower quadrant. No Rovsing. No psoas. White count 16,000. Afebrile. CT scan demonstrated a large appendix but no periappendiceal fat stranding. Medications/Allergies Home Medications ?Medication ?Instructions ?Recorded ?Confirmed ?Last Taken ?Type epinephrine 0.3 mg/0.3 mL 0.3 mg (0.3 mL) IM Q20M PRN 10/25/22 03/10/25 Unknown Rx injection, auto-injector (EpiPen anaphylaxis #2 ea 2-Iglesia) omega 4-icf-whq-fish oil 300 1 cap PO DAILY 06/18/24 03/10/25 Unknown History mg-1,000 mg capsule (Fish Oil) cyclobenzaprine 10 mg tablet 10 mg PO TID PRN muscle spasm #90 07/22/24 03/10/25 Unknown Rx tabs diclofenac sodium 75 mg 75 mg PO BID PRN pain #60 tabs 07/22/24 03/10/25 Unknown Rx tablet,delayed release CAM walker #1 ea 02/11/25 03/10/25 Unknown Rx orthopedic shoes and custom #2 ea 02/11/25 03/10/25 Unknown Rx orthotics allopurinol 100 mg tablet 100 mg PO DAILY 03/10/25 03/10/25 Unknown History ezetimibe 10 mg tablet 10 mg PO DAILY 03/10/25 03/10/25 Unknown History famotidine 20 mg tablet 20 mg PO BID 03/10/25 03/10/25 Unknown History gabapentin 300 mg capsule 300 mg PO TID 03/10/25 03/10/25 Unknown History Allergies Allergy/AdvReac Type Severity Reaction Status Date / Time Sulfa (Sulfonamide Allergy ALGY-Rash Verified 03/10/25 01:26 Antibiotics) PFSH Acute PFSH: Medical History No pertinent past medical history Social History Smoking and tobacco/nicotine status: former use of tobacco/nicotine Vitals/I&O/Wt Last Vital Signs Temp 98.6 F 03/10/25 07:24 Pulse 72 03/10/25 07:24 Resp 17 03/10/25 07:24 BP 135/68 03/10/25 07:24 Pulse Ox 95 03/10/25 07:24 O2 Del Method Room Air 03/10/25 07:24 03/09/25 03/10/25 03/10/25 22:59 06:59 14:59 Intake Total 1050 / 1050 Balance 1050 / 1050 Weight last 48 hrs Weight 270 lb Weight 285 lb Physical Exam Narrative: Chest: Unlabored breathing room air. No lymphadenopathy. Heart: Regular rate and rhythm. Abdomen: Soft, tender right lower quadrant, nondistended. No masses or lymphadenopathy. Data 03/10/25 01:44 03/10/25 01:44 A&P Assessment and plan (1) Appendicitis: Plan 54-year-old male who presented with 12 hours of right lower quadrant pain. Had a discussion with the patient regarding CT scan findings as well as his clinical presentation and lab findings. Clinical picture most consistent with acute appendicitis. Discussed risk and benefits and patient agreed to proceed with laparoscopic appendectomy possible open. PDMP PDMP Reviewed: Not Reviewed Attestations Medical Necessity Statement*: IV fluids, IV pain meds, IV antibiotics Coding Level of Care Code 64000 Diagnoses Appendicitis K37
--- NOTE | 2025-03-10 13:05 | P.ANESASSM_ITS ---
Pre-Anesthetic Assessment Height/Weight: Height 6 ft 3 in Weight 270 lb Temp Pulse Resp BP Pulse Ox O2 Del Method 98.6 F 72 18 135/68 95 Room Air 03/10/25 07:24 03/10/25 07:24 03/10/25 11:13 03/10/25 07:24 03/10/25 07:24 03/10/25 07:24 Preop Diagnosis: Acute appendicitis Operation Date: 03/10/25 14:30 Proposed Procedures p Laparoscopic Appendectomy-possible open(Not Applicable) - Denis Young MD Was Beta Rachel taken within 24 hours: N/A Was Clonidine taken within 24 hours: N/A Social No alcohol and No tobacco Exam alert, oriented x 3, clear to auscultation bilaterally and regular rate & rhythm Airway Submandibular: within normal limits Cervical ROM: within normal limits Mallampati: Class III Comments: Comments: Very poor dentition, loose upper front tooth Anesthetic Plan ASA status: 3 Anesthesia: General Other: Patient admitted this morning with acute appendicitis No prior issues with anesthesia other than having a tooth that was a loose fall out NPO since yesterday afternoon History of GERD, on chronic Pepcid MAX, occasional CPAP Labs reviewed, leukocytosis noted EKG showing sinus tachycardia Plan for GETA with video laryngoscopy Medications/Allergies Home Medications ?Medication ?Instructions ?Recorded ?Confirmed ?Last Taken ?Type epinephrine 0.3 mg/0.3 mL 0.3 mg (0.3 mL) IM Q20M PRN 10/25/22 03/10/25 Unknown Rx injection, auto-injector (EpiPen anaphylaxis #2 ea 2-Iglesia) omega 8-pqj-rdr-fish oil 300 1 cap PO DAILY 06/18/24 0 03/10/25 Unknown History mg-1,000 mg capsule (Fish Oil) cyclobenzaprine 10 mg tablet 10 mg PO TID PRN muscle s pasm #90 07/22/24 03/10/25 Unknown Rx tabs diclofenac sodium 75 mg 75 mg PO BID PRN pain #60 ta bs 07/22/24 03/10/25 Unknown Rx tablet,delayed release CAM walker #1 ea 02/11/25 03/10/25 Unkn own Rx orthopedic shoes and custom #2 ea 02/11/25 03/10/25 Un known Rx orthotics allopurinol 100 mg tablet 100 mg PO DAILY 03/10/25 Unknown History ezetimibe 10 mg tablet 10 mg PO DAILY 03/10/2502/23 Unknown History famotidine 20 mg tablet 20 mg PO BID 03/10/25 Unknown History gabapentin 300 mg capsule 300 mg PO TID 03/10/2503/10 Unknown History Allergies Allergy/AdvReac Type Severity Reaction Status Date / Time Sulfa (Sulfonamide Allergy ALGY-Rash Verified 03/10/25 01:26 Antibiotics) Current Medications Generic Name Dose Route Start Last Admin Trade Name Freq PRN Reason Stop Dose Admin Lactated Ringer's 1,000 mls @ 125 mls/hr 03/10/25 05:49 03/10/25 06:12 Lactated Ringers IV 125 mls/hr .Q8H LIZBETH Administration Morphine Sulfate 4 mg 03/10/25 05:49 03/10/25 11:13 Morphine 4 Mg/Ml Sdv 1 Ml IVP 4 mg Q4H PRN Administration SEVERE PAIN PFSH Anesthesia Medical History No pertinent past medical history Social History Smoking and tobacco/nicotine status: former use of tobacco/nicotine Data Anesthesia 03/10/25 01:44 03/10/25 01:44 Short CBC 03/10/25 Range/Units 01:44 WBC 16.31 H (3.29-11.43) 10^3/uL Hgb 13.90 (11.27-16.99) g/dL Hct 40.9 (37-53) % MCV 93.2 (82-101) fl Plt Count 266 (157-399) 10^3/cmm Neut % (Auto) 87.2 % Neut # (Auto) 14.21 H (1.8-7.7) 10^3/uL BMP 03/10/25 01:44 Sodium 139 Potassium 3.9 Chloride 100 Carbon Dioxide 25 BUN 14 Creatinine 0.9 Glucose 135 H Calcium 9.6 Liver Function 03/10/25 Range/Units 01:44 Total Bilirubin 0.3 (0.15-1.2) mg/dL AST 20 (0-40) U/L ALT 30 (0-41) U/L Alkaline Phosphatase 74 (40-130) U/L Albumin 4.5 (3.5-5.2) g/dL Urine 03/10/25 Range/Units 03:22 Urine Color Yellow (Yellow) Urine Appearance Cloudy A (CLEAR) Urine pH 8.5 A (5-7) Ur Specific [place] 1.035 H (1.005-1.030) Urine Protein Negative (Negative) Urine Glucose (UA) Negative (Normal) Urine Ketones Negative (Negative) Urine Nitrate Negative (Negative) Urine Bilirubin Negative (Negative) Ur Leukocyte Esterase Negative (Negative) Urine RBC 0-2 (0-2) /hpf Urine WBC 0-5 (0-5) /hpf [facility] 03/10/25 01:44 C-Reactive Protein 3.0
[2025-03-10] MEDS: sodium chloride 0.9% 1,000 ML 30 ML IV (14:03)
[2025-03-10] MEDS: BUPivacaine 0.25% INJ 10 mL INJECTION (14:53)
[2025-03-10] MEDS: lidocaine-epi 1% 20 mL INJ 10 ML INJECTION (14:53)
--- NOTE | 2025-03-10 15:17 | PM.OP ---
Operative Report Date of procedure: March 10, 2025 Pre-op diagnosis: Uncomplicated appendicitis Post-op diagnosis: Perforated appendicitis Post-op findings: Perforated appendicitis. Phlegmonous changes encasing the tip of the appendix and in the right paracolic gutter. Unable to dissect appendix safely since it was densely adhered to the cecum and retroperitoneum. Procedure done: Diagnostic laparoscopy. Peritoneal drain placement. Implants: N/A Specimens removed/disposition: None Pathology: none sent Surgeon: Denis Young MD Audioprosthologist: N/A Anesthesia: General Estimated blood loss (mL): 10 Complications: N/A Findings: Perforated appendicitis. Phlegmonous changes encasing the tip of the appendix and in the right paracolic gutter. Unable to dissect appendix safely since it was densely adhered to the cecum and retroperitoneum. Condition: stable Disposition: observation Brief History: 54-year-old male who presented with right lower quadrant pain. Leukocytosis of 16,000. CT scan showed a large appendix but no definitive evidence of acute appendicitis. Clinical picture most consistent with acute appendicitis. Discussed risk and benefits and patient agreed to proceed with laparoscopic appendectomy, possible open. Procedure: After having a discussion about risks and benefits and obtaining consent from POA, patient was brought to the OR. SCDs were functioning prior to intubation. Zosyn was given prior to incision. General anesthesia was administered. Arms were tucked. A amaya catheter was placed. The abdomen was prepped and draped in the usual sterile fashion. Insufflation was achieved using a Veress needle at Willingham's point (15mmHg). A 5mm port was placed at the umbilicus using an optical view port. Then a 5mm port was placed suprapubically, and a 12mm port was placed in the left lower quadrant. The abdomen was inspected and no injuries were noted. Patient was placed in Trendelenburg and the table was rotated left. Using atraumatic bowel graspers the small bowel was placed on the left side of the abdomen, revealing the cecum and phlegmonous changes in the right paracolic gutter. The right colon was mobilized by incising the white line of Toldt using the Ligasure. The base of the appendix was identified in the posterior aspect of the cecum. The retrocecal appendix was encased by phlegmonous changes and densely adhered to the retroperitoneum and the cecum. Most consistent with perforated appendicitis. Despite my best attempts to expose the body and tip of the appendix, I was unable to dissected safely since it was densely adhered to the cecum. I then elected to abort the appendectomy. I washed out the other with 1 L of normal saline. I placed a 19 [place] Stefano drain in the right paracolic gutter. The abdomen was desufflated and skin was closed using 4-0 monocryl and surgical glue. The drain was secured using 3-0 nylon at the left lower quadrant port site. Amaya was removed at the end of the case. The patient woke up from anesthesia and was transferred to PACU without any complications
[2025-03-10] MEDS: TRAMadol 50 mg Tablet PO (20:37)
[2025-03-11] VITALS (7 sets, daily range): BP systolic 106–162; BP diastolic 63–70; PULSE 54–72; RESP 16–18; TEMP 36.5–36.8; O2SAT 91–97
[2025-03-11] MEDS: piperacillin-tazobactam 3.375 GM in sodium chloride 0.9% (plus) 50 ML IV ×3 (05:11→21:05)
[2025-03-11] MEDS: TRAMadol 50 mg Tablet PO ×3 (05:11→21:10)
[2025-03-11 05:19] LABS: Basophils % 0.1 %; Hematocrit 36.5 % (37-53); Lymphocytes # 1.1 10^3/uL (0.8-4.8); Lymphocytes % 7.4 %; Mean Corpuscular HGB Conc 33.4 g/dL (30-55); Mean Corpuscular Hemoglobin 31.9 pg (27-33); Mean Corpuscular Volume 95.3 fl (82-101); Mean Platelet Volume 9.5 fL (7.4-10.4); Monocytes # 0.7 10^3/uL (0.2-0.9); Monocytes % 4.8 %; Neutrophils # 12.76 10^3/uL (1.8-7.7); Neutrophils % 87.2 %; Nucleated Red Blood Cells % 0 %; Platelet Count 227 10^3/cmm (157-399); Red Blood Count 3.83 10^6/uL (3.85-5.65); Red Cell Distribution Width 12.2 % (12.1-15.1); White Blood Count 14.65 10^3/uL (3.29-11.43)
[2025-03-11] MEDS: morphine 4 mg/mL SDV 1 mL IVP ×2 (06:04→23:23)
--- NOTE | 2025-03-11 09:18 | PC.CHAP ---
Pastoral Care Encounter/Spiritual Assessment Type of Contact [] Declined butcherette visit [] Patient/Family/Request visit [] Outpatient visit [] Follow-up visit [] Physician referral [] Code/Alert [x] Routine visit [] Staff referral [] Actively dying [] Patient sleeping [] Family support [] [] Out of room [] Palliative care [] [] Receiving care in room [] Pre-surgical visit [] Trauma [] Long length of stay [] ICU visit [] Other: Relational/Emotional Strength [x] Patient feels connected with others/family/visitors/staff [] Distress [] Loneliness/isolation [] Abandonment Spirituality of Patient [x] Person of Maddy [] Attends Episcopal of their Maddy [x] Believes in Prayer [] Reads Bible or Worship materials [] There are Spiritual issues to be addressed Filler Leaf Cutter Long Interventions [x] Prayer [x] Active listening [] Non-anxious presence [x] Spiritual/emotional support [] Crisis/trauma care [] Spiritual counseling [] Bereavement support [] Provided bereavement packet [] Provided Bible/devotional materials [] Provided toy/stuffed animal, coloring book to patient or family member [] Provided Communion [] Anointing/[place] [] Salvation [x] Completed spiritual assessment [] Other: Impact on Illness or Injury [] Angry [] Fearful [] Anxious [] Often cries [] Exhaustion [] Unable to work [] Unable to attend episcopal [] Unable to walk/stand [] Unable to read [] Unable to drive [] Unable to eat/drink [] Unable to sleep [] Unable to be with family [] Patient intubated [] Other: Summary Time spent with patient 5 min
--- NOTE | 2025-03-11 10:07 | P.PN_ITS ---
Subjective 2 Subjective: Pain improved White count down Afebrile Abdomen benign Drains serous Vitals/I&O/Wt Last Vital Signs Temp 98.2 F 03/11/25 07:41 Pulse 54 L 03/11/25 07:41 Resp 18 03/11/25 07:41 BP 112/70 03/11/25 07:41 Pulse Ox 91 03/11/25 07:41 O2 Del Method Room Air 03/11/25 07:41 O2 Flow Rate 8 03/10/25 15:32 03/10/25 03/11/25 03/11/25 22:59 06:59 14:59 Intake Total 1475.5 / 1525.5 690 / 2215.5 940 / 940 Output Total 95 / 95 300 / 395 Balance 1380.5 / 1430.5 390 / 1820.5 940 / 940 Weight last 48 hrs Weight 270 lb Weight 270 lb Weight 285 lb Physical Exam 2 Narrative: Chest: Unlabored breathing room air. No lymphadenopathy. Heart: Regular rate and rhythm. Abdomen: Soft, appropriately tender, nondistended. No masses or lymphadenopathy. Drain is serous Urinary Catheter Management: Munson: Cath Placed During This Visit: yes, but has since been removed by the nurse Urinary Catheter Date of Insertion: 03/10/25 Urinary Catheter Time of Insertion: 14:42 Date Urinary Catheter Removed: 03/10/25 Time Urinary Catheter Discontinued: 15:17 Data 03/11/25 05:04 03/10/25 01:44 A&P Assessment and plan (1) Appendicitis: Plan 54-year-old male who presented with perforated appendicitis. POD 1 diagnostic laparoscopy, peritoneal drain placement, abdominal washout. Tolerating regular diet. White count is down. Will keep 1 more day for IV antibiotics. PDMP PDMP Reviewed: Not Reviewed Attestations 2 Medical Necessity Statement*: N/A Coding Level of Care Code 33390 Diagnoses Appendicitis K37
[2025-03-12] VITALS (7 sets, daily range): BP systolic 105–143; BP diastolic 65–88; PULSE 60–70; RESP 16–18; TEMP 36.4–37.6; O2SAT 94–96
[2025-03-12] MEDS: piperacillin-tazobactam 3.375 GM in sodium chloride 0.9% (plus) 50 ML IV ×3 (04:56→21:06)
[2025-03-12] MEDS: TRAMadol 50 mg Tablet PO ×3 (05:09→21:05)
--- NOTE | 2025-03-12 07:01 | P.PN_ITS ---
Subjective 2 Subjective: Afebrile White count down Abdomen benign Drain serosanguineous Vitals/I&O/Wt Last Vital Signs Temp 98.5 F 03/12/25 04:00 Pulse 67 03/12/25 04:00 Resp 17 03/12/25 04:00 BP 105/65 03/12/25 04:00 Pulse Ox 95 03/12/25 00:00 O2 Del Method Room Air 03/12/25 04:00 O2 Flow Rate 8 03/10/25 15:32 03/11/25 03/12/25 03/12/25 22:59 06:59 14:59 Intake Total 1270.833 / 3010.833 99.167 / 3110.000 Output Total Balance 1265.833 / 3005.833 99.167 / 3105.000 Weight last 48 hrs Weight 201 lb Weight 270 lb Physical Exam 2 Narrative: Chest: Unlabored breathing room air. No lymphadenopathy. Heart: Regular rate and rhythm. Abdomen: Soft, appropriately tender, mildly distended. No masses or lymphadenopathy. Drain serosanguineous Urinary Catheter Management: Munson: Cath Placed During This Visit: yes, but has since been removed by the nurse Urinary Catheter Date of Insertion: 03/10/25 Urinary Catheter Time of Insertion: 14:42 Date Urinary Catheter Removed: 03/10/25 Time Urinary Catheter Discontinued: 15:17 Data 03/12/25 08:56 03/10/25 01:44 A&P Assessment and plan (1) Perforated appendicitis: Plan 54-year-old male with perforated appendicitis. POD 2 diagnosed laparoscopy, abdominal washout, peritoneal drain placement. Afebrile. White count down. Will keep 1 more day for IV antibiotics. PDMP PDMP Reviewed: Not Reviewed Attestations 2 Medical Necessity Statement*: IV antibiotics for perforated appendicitis Coding Level of Care Code 92712 Diagnoses Perforated appendicitis K35.32
[2025-03-12 09:06] LABS: Basophils # 0.1 10^3/uL (0.0-0.1); Basophils % 0.4 %; Eosinophils # 0.1 10^3/uL (0.0-0.8); Eosinophils % 0.6 %; Hematocrit 34.8 % (37-53); Lymphocytes # 2.6 10^3/uL (0.8-4.8); Lymphocytes % 19.8 %; Mean Corpuscular HGB Conc 33.6 g/dL (30-55); Mean Corpuscular Hemoglobin 31.5 pg (27-33); Mean Corpuscular Volume 93.5 fl (82-101); Mean Platelet Volume 9.7 fL (7.4-10.4); Monocytes # 0.7 10^3/uL (0.2-0.9); Monocytes % 5.1 %; Neutrophils # 9.51 10^3/uL (1.8-7.7); Neutrophils % 73.6 %; Nucleated Red Blood Cells % 0 %; Platelet Count 194 10^3/cmm (157-399); Red Blood Count 3.72 10^6/uL (3.85-5.65); Red Cell Distribution Width 12.5 % (12.1-15.1); White Blood Count 12.91 10^3/uL (3.29-11.43)
--- NOTE | 2025-03-12 12:05 | PC.NURSE ---
This nurse stripped patient's drain. Patient having a lot of pain after. Dr. Young notified. Patient is to keep drain for 14 days.
[2025-03-13 04:00] VITALS: BP 126/82; PULSE 71; RESP 16; TEMP 36.8; O2SAT 94
[2025-03-13] MEDS: TRAMadol 50 mg Tablet PO ×2 (04:32→12:33)
[2025-03-13 05:40] LABS: Hematocrit 35.4 % (37-53); Mean Corpuscular HGB Conc 34.2 g/dL (30-55); Mean Corpuscular Hemoglobin 31.6 pg (27-33); Mean Corpuscular Volume 92.4 fl (82-101); Mean Platelet Volume 9.9 fL (7.4-10.4); Platelet Count 224 10^3/cmm (157-399); Red Blood Count 3.83 10^6/uL (3.85-5.65); Red Cell Distribution Width 12.4 % (12.1-15.1); White Blood Count 12.45 10^3/uL (3.29-11.43)
[2025-03-13 05:41] LABS: Absolute Eosinophils 0.1 10^3/cmm (0.0-0.7); Absolute Segmented Neutrophil 9.2 10/cmm (1.6-7.1); Eosinophils 1 %; Lymphocytes 16 %; Monocytes Absolute 1.1 10^3/cmm (0.1-0.6); Platelet Estimate Normal (Normal); Segmented Neutrophils 74 %; Total Cells Counted 100 (0-100)
[2025-03-13] MEDS: piperacillin-tazobactam 3.375 GM in sodium chloride 0.9% (plus) 50 ML IV (06:09)
[2025-03-13 08:13] VITALS: BP 121/79; PULSE 62; RESP 18; TEMP 36.9; O2SAT 92
[2025-03-13 11:58] VITALS: BP 131/90; PULSE 62; RESP 16; TEMP 37.2; O2SAT 95
--- NOTE | 2025-03-13 13:53 | P.PN_ITS ---
Subjective 2 Subjective: White count down Afebrile Abdomen benign STAS serosanguineous Vitals/I&O/Wt Last Vital Signs Temp 99 F 03/13/25 11:58 Pulse 62 03/13/25 11:58 Resp 16 03/13/25 11:58 BP 131/90 03/13/25 11:58 Pulse Ox 95 03/13/25 11:58 O2 Del Method Room Air 03/13/25 11:58 O2 Flow Rate 8 03/10/25 15:32 03/12/25 03/13/25 03/13/25 22:59 06:59 14:59 Intake Total 960 / 1370 100 / 1470 700 / 700 Balance 960 / 1345 100 / 1445 700 / 700 Weight last 48 hrs Weight 274 lb Weight 274 lb Weight 201 lb Physical Exam 2 Narrative: Chest: Unlabored breathing room air. No lymphadenopathy. Heart: Regular rate and rhythm. Abdomen: Soft, nontender, nondistended. No masses or lymphadenopathy. STAS serosanguineous Urinary Catheter Management: Munson: Cath Placed During This Visit: yes, but has since been removed by the nurse Urinary Catheter Date of Insertion: 03/10/25 Urinary Catheter Time of Insertion: 14:42 Date Urinary Catheter Removed: 03/10/25 Time Urinary Catheter Discontinued: 15:17 Data 03/13/25 04:25 03/10/25 01:44 A&P Assessment and plan (1) Perforated appendicitis: Plan 54-year-old male who presented with perforated appendicitis. Doing well. Discharging. 14 days of antibiotics. Will keep drain until his follow-up in 2 weeks. PDMP PDMP Reviewed: Last Reviewed 03/13/25 14:51 EDT by Denis Young MD Attestations 2 Medical Necessity Statement*: IV pain meds IV fluids IV antibiotics Coding Level of Care Code 25763 Diagnoses Perforated appendicitis K35.32
--- NOTE | 2025-03-13 13:54 | P.DS_ITS ---
Discharge Providers Date of Admission: 03/12/25 17:50 Date of Discharge: March 13, 2025 Attending Provider at Admission: Denis Young MD Attending Provider at Discharge: Denis Young MD Primary Care Provider: Clair Jones MD Diagnoses at Discharge Discharge Diagnosis (1) Perforated appendicitis: Status: Acute Reason for Visit 2 Reason for Visit: V\ABD Pain Hospital Course Hospital Course 54-year-old male who presented with nonspecific abdominal pain. Enlarged appendix on CT scan. White count of 16,000. Patient agreed to proceed with diagnostic laparoscopy and possible appendectomy. A perforated appendicitis was encountered. Unable to dissect appendix safely and therefore elected to perform an abdominal washout, peritoneal drain placement, and treated with antibiotics. Patient did well postoperatively and was discharged on 14 days of antibiotics. He will follow-up with me in 2 weeks and he will keep the drain until then. Physical Exam Narrative: Chest: Unlabored breathing room air. No lymphadenopathy. Heart: Regular rate and rhythm. Abdomen: Soft, nontender, nondistended. No masses or lymphadenopathy. Drain serosanguineous Urinary Catheter Management: Munson: Cath Placed During This Visit: yes, but has since been removed by the nurse Urinary Catheter Date of Insertion: 03/10/25 Urinary Catheter Time of Insertion: 14:42 Date Urinary Catheter Removed: 03/10/25 Time Urinary Catheter Discontinued: 15:17 Discharge Data Studies Completed and Pending Completed Studies During Hospitalization Category Date Time Status CT abdomen pelvis w con* [id number] Urgent Cat Scan 03/10/25 02:15 Completed Radiology Impressions Abdomen/Pelvis CT 03/10/25 02:15 IMPRESSION: No acute pathologic findings in the abdomen/pelvis. Laboratory Results WBC 12.45 10^3/uL (3.29-11.43) H 03/13/25 04:25 RBC 3.83 10^6/uL (3.85-5.65) L 03/13/25 04:25 Hgb 12.10 g/dL (11.27-16.99) 03/13/25 04:25 Hct 35.4 % (37-53) L 03/13/25 04:25 MCV 92.4 fl (82-101) 03/13/25 04:25 MCH 31.6 pg (27-33) 03/13/25 04:25 MCHC 34.2 g/dL (30-55) 03/13/25 04:25 RDW 12.4 % (12.1-15.1) 03/13/25 04:25 Plt Count 224 10^3/cmm (157-399) 03/13/25 04:25 MPV 9.9 fL (7.4-10.4) 03/13/25 04:25 Neut % (Auto) 73.6 % 03/12/25 08:56 Lymph % (Auto) 19.8 % 03/12/25 08:56 Crisp % (Auto) 5.1 % 03/12/25 08:56 Eos % (Auto) 0.6 % 03/12/25 08:56 Baso % (Auto) 0.4 % 03/12/25 08:56 Neut # (Auto) 9.51 10^3/uL (1.8-7.7) H 03/12/25 08:56 Lymph # (Auto) 2.6 10^3/uL (0.8-4.8) 03/12/25 08:56 Crisp # (Auto) 0.7 10^3/uL (0.2-0.9) 03/12/25 08:56 Eos # (Auto) 0.1 10^3/uL (0.0-0.8) 03/12/25 08:56 Baso # (Auto) 0.1 10^3/uL (0.0-0.1) 03/12/25 08:56 Nucleated RBC % (auto) 0 % 03/12/25 08:56 Total Counted 100 (0-100) 03/13/25 04:25 Atypical Lymphs % Not Reportable 03/13/25 04:25 Segmented Neutrophils 74 % 03/13/25 04:25 Band Neutrophils Not Reportable 03/13/25 04:25 Lymphocytes (Manual) 16 % 03/13/25 04:25 Monocytes (Manual) 9.0 % 03/13/25 04:25 Absolute Monocytes 1.1 10^3/cmm (0.1-0.6) H 03/13/25 04:25 Eosinophils (Manual) 1 % 03/13/25 04:25 Absolute Eosinophils 0.1 10^3/cmm (0.0-0.7) 03/13/25 04:25 Basophils (Manual) 0.0 % 03/13/25 04:25 Absolute Basophils 0.0 10^3/cmm (0.0-0.2) 03/13/25 04:25 Nucleated RBCs # 0.0 /100WBC 03/12/25 08:56 Platelet Estimate Normal (Normal) 03/13/25 04:25 Sodium 139 mmol/L (136-145) 03/10/25 01:44 Potassium 3.9 mmol/L (3.5-5.1) 03/10/25 01:44 Chloride 100 mmol/L (98-107) 03/10/25 01:44 Carbon Dioxide 25 mmol/L (22-29) 03/10/25 01:44 Anion Gap 17.9 (5-19) 03/10/25 01:44 BUN 14 mg/dL (6-20) 03/10/25 01:44 Creatinine 0.9 mg/dL (0.7-1.2) 03/10/25 01:44 GFR Calculation 88.3 mL/min (90-130) L 03/10/25 01:44 Glucose 135 mg/dL (65-115) H 03/10/25 01:44 Calculated Osmolality 291 mOsm/kg (285-295) 03/10/25 01:44 Calcium 9.6 mg/dL (8.5-10.5) 03/10/25 01:44 Total Bilirubin 0.3 mg/dL (0.15-1.2) 03/10/25 01:44 AST 20 U/L (0-40) 03/10/25 01:44 ALT 30 U/L (0-41) 03/10/25 01:44 Alkaline Phosphatase 74 U/L (40-130) 03/10/25 01:44 C-Reactive Protein 3.0 mg/L (0.0-4.9) 03/10/25 01:44 Total Protein 7.6 g/dL (6.6-8.7) 03/10/25 01:44 Albumin 4.5 g/dL (3.5-5.2) 03/10/25 01:44 Globulin 3.1 g/dL (1.3-4.6) 03/10/25 01:44 Lipase 29 U/L (13-60) 03/10/25 01:44 Urine Color Yellow (Yellow) 03/10/25 03:22 Urine Appearance Cloudy (CLEAR) A 03/10/25 03:22 Urine pH 8.5 (5-7) A 03/10/25 03:22 Ur Specific [place] 1.035 (1.005-1.030) H 03/10/25 03:22 Urine Protein Negative (Negative) 03/10/25 03:22 Urine Glucose (UA) Negative (Normal) 03/10/25 03:22 Urine Ketones Negative (Negative) 03/10/25 03:22 Urine Blood Negative (Negative) 03/10/25 03:22 Urine Nitrate Negative (Negative) 03/10/25 03:22 Urine Bilirubin Negative (Negative) 03/10/25 03:22 Urine Urobilinogen 0.2 mg/dL (Negative) 03/10/25 03:22 Ur Leukocyte Esterase Negative (Negative) 03/10/25 03:22 Urine RBC 0-2 /hpf (0-2) 03/10/25 03:22 Urine WBC 0-5 /hpf (0-5) 03/10/25 03:22 Ur Squamous Epith Cells 0-5 /hpf (0-5) 03/10/25 03:22 Amorphous Sediment Not Reportable 03/10/25 03:22 Urine Bacteria None seen /hpf (NONE) 03/10/25 03:22 Hyaline Casts 0-4 /lpf H 03/10/25 03:22 Vitals Last Vital Signs Temp 99 F 03/13/25 11:58 Pulse 62 03/13/25 11:58 Resp 16 03/13/25 11:58 BP 131/90 03/13/25 11:58 Pulse Ox 95 03/13/25 11:58 O2 Del Method Room Air 03/13/25 11:58 O2 Flow Rate 8 03/10/25 15:32 Discharge Plan Discharge Patient Disposition: Home Condition: Stable Prescriptions: New amoxicillin-pot clavulanate 875-125 mg tablet 1 tab PO Q12H 14 Days Qty: 28 0RF oxycodone 5 mg tablet 5 mg PO Q6H PRN (Reason: pain) 10 Days Qty: 30 0RF bisacodyl [Dulcolax (bisacodyl)] 5 mg tablet,delayed release (DR/EC) 5 mg PO BID 30 Days Qty: 60 0RF Continued omega 9-rjw-chs-fish oil [Fish Oil] 300-1,000 mg capsule 1 cap PO DAILY cyclobenzaprine 10 mg tablet 10 mg PO TID PRN (Reason: muscle spasm) Qty: 90 3RF diclofenac sodium 75 mg tablet,delayed release (DR/EC) 75 mg PO BID PRN (Reason: pain) Qty: 60 3RF (DME) orthopedic shoes and custom orthotics See Rx Instructions .Route .MEDSUPPLY Qty: 2 0RF Rx Instructions: As directed (DME) CAM walker See Rx Instructions .Route .MEDSUPPLY Qty: 1 0RF Rx Instructions: As directed epinephrine [EpiPen 2-Iglesia] 0.3 mg/0.3 mL auto-injector 0.3 mg IM Q20M PRN (Reason: anaphylaxis) Qty: 2 0RF Rx Instructions: not to exceed 6 doses per episode allopurinol 100 mg Tablet 100 mg PO DAILY famotidine 20 mg Tablet 20 mg PO BID gabapentin 300 mg capsule 300 mg PO TID ezetimibe 10 mg Tablet 10 mg PO DAILY Discharge Orders: Discharge Order (Routine); Ordered 03/13/25 Ordered By: Denis Young Referrals: Clair Jones MD [Primary Care Provider, Family Practice] - 03/24/25 10:30 am Denis Young MD [Physician, General Surgery] - 03/27/25 8:55 am Referral Note: Tyrone Weber DPM [Physician, Podiatry] - 03/17/25 1:45 pm Referral Note: Discharge Diet: Usual diet Discharge Activity: Limit activity as instructed Patient Instructions: Acute Wound Care (DC), Opioid Safety, Post Anesthesia Care Activity Restrictions/Additional Instructions: 1. No heavy exercise or lifting greater than 10lbs for 6 weeks. 2. No pools, saunas, bathtubs for [address] if taking narcotics. 4. You may take over the counter tylenol 650mg every 6 hrs and ibuprofen 400mg every 6 hrs as needed for 5 days in addition to the oxycodone. 5. Follow-up in clinic in 2 weeks. 6. Call the office if you have any concerns or questions. Discharge Attestations Time Spent in Discharge Care*: greater than 30 min Quality Metrics Clinical Quality Measures [ No reported AMI, CVA or VTE this stay] Coding Level of Care Code Acute Code for Chg Fwd Diagnoses Perforated appendicitis K35.32
--- NOTE | 2025-03-13 15:16 | PC.NURSE ---
Discharge delay due to having to change pain medication from oxycodone to tramadol and arrival of medication from meds to beds.
== END 2025-03-13 15:14 | disposition home or self-care (01) | DRG 358 ==
LOC: ER 04:57 → MEDSURG 05:00
PROVIDERS: Admitting Provider Student in an Organized Health Care Education/Training Program; Emergency Provider Emergency Medicine; PCP Family Medicine; Visit Provider Student in an Organized Health Care Education/Training Program
PROC: 0DTJ4ZZ Resection of Appendix, Percutaneous Endoscopic Approach (ICD-10-PCS; CPT 44970; principal; 2025-03-10 14:30)
DX: K35.32 Acute appendicitis with perforation, localized peritonitis, and gangrene, without abscess (principal); Z87.891 Personal history of nicotine dependence
CPT/HCPCS: 36415; 51702; 74177; 80053; 81001; 83690; 85007; 85025; 85027; 86140; 96365; 96375; 99285; A4216; G0378; J0131; J0330; J1100; J1171; J1885; J2250; J2270; J2405; J2543; J2704; J3010; J3490; J7030; J7120; J9999

== ENCOUNTER → 2025-03-17 14:07 | Outpatient (BNVA) | payer OTHER, SELFPAY | PROVIDERS: PCP Family Medicine; Visit Provider Podiatrist Foot & Ankle Surgery | DX: S92.211A Displaced fracture of cuboid bone of right foot, initial encounter for closed fracture (principal); X58.XXXA Exposure to other specified factors, initial encounter; M20.21 Hallux rigidus, right foot | CPT/HCPCS: 73630; 99214 ==

== ENCOUNTER 2025-03-21 12:22 | Emergency (ER) | payer OTHER, SELFPAY ==
--- OUTSIDE RECORDS SUMMARY | 2025-03-21 12:28 | XMS_ITS | Clinical Summary ---
Author Organization [facility] Address [address] Brothers: Epic Prelude ADT [place] [id number] Care Team Providers Care Demand Generator Manager Name Role Phone Unavailable Primary Care Provider Unavailabl e Allergies Active Allergy Reactions Criticality Noted Date Comments Sulfa (Sulfonamide Antibiotics) Hives High 12/24 Medications rosuvastatin (CRESTOR) 10 mg tablet Take 10 mg by mouth daily. Active Active Problems No known active problems Social History Tobacco Use Types Packs/Day Years Used Date Smoking Tobacco: Former Cigarettes Tobacco Cessation:Counseling Given: Not Answered Sex and Gender Information Value Date Recorded Sex Assigned at Not on file Legal Sex Male 12:03 AM PIE CHEF Gender Identity Not on file Sexual Orientation Not on file Last Filed Vital Signs Vital Sign Reading Time Taken Comments Blood Pressure 130/68 01/10/2023 2:22 PM CDT Pulse 79 01/10/2023 2:22 PM CDT Temperature 36.6 C (97.8 F) 01/10/2023 2:22 PM CDT Respiratory Rate - - Oxygen Saturation 98% 01/10/2023 2:22 PM CDT Inhaled Oxygen Concentration - - Weight 121.6 kg (268 lb) 01/10/2023 2:22 PM CDT Height 190.5 cm (6' 3 ) 01/10/2023 2:22 PM CDT Body Mass Index 33.5 01/10/2023 2:22 PM CDT Plan of Treatment Health Maintenance Due Date Last Done Comments HEPATITIS B VACCINES (1 of 3 - 19+ 3-dose series) 04/26 COLORECTAL SCREENING 2016 Colorectal Cancer Screening 2016 FIT-DNA Q 3 years 2016 FIT/FOBT Q 1 year 2016 Flex Sig/CT Colonography Q 5 years 2016 ZOSTER VACCINE (1 of 2) 2021 INFLUENZA VACCINE (#1) 2024 DTAP/TDAP/TD VACCINES (2 - Td or Tdap) 04/17/2027 Insurance PR CCN [address] [place] [address]
[2025-03-21 12:39] VITALS: BP 113/72; PULSE 96; RESP 16; TEMP 37.2; O2SAT 94; BMI 33.7
--- NOTE | 2025-03-21 14:23 | PM.CONSULT ---
Providers/Reason For Consult Consulting Physician/Specialty*: Dr. Young general surgery Reason for Consult*: Perforated appendicitis Primary Care Provider: Clair Jones MD History of Present Illness History of Present Illness Jb Perez is a 54 year old male status post attempted laparoscopic appendectomy. Encountered a perforated appendix. Left a peritoneal drain. He has been treated with antibiotics. Came back for a drain check. Drain is serous. No abdominal pain. Mild cellulitis around drain site. Medications/Allergies Home Medications ?Medication ?Instructions ?Recorded ?Confirmed ?Last Taken ?Type epinephrine 0.3 mg/0.3 mL 0.3 mg (0.3 mL) IM Q20M PRN 10/25/22 03/17/25 Unknown Rx injection, auto-injector (EpiPen anaphylaxis #2 ea 2-Iglesia) omega 8-use-bog-fish oil 300 1 cap PO DAILY 06/18/24 03/17/25 Unknown History mg-1,000 mg capsule (Fish Oil) cyclobenzaprine 10 mg tablet 10 mg PO TID PRN muscle spasm #90 07/22/24 03/17/25 Unknown Rx tabs diclofenac sodium 75 mg 75 mg PO BID PRN pain #60 tabs 07/22/24 03/17/25 Unknown Rx tablet,delayed release CAM walker #1 ea 02/11/25 03/17/25 Unknown Rx orthopedic shoes and custom #2 ea 02/11/25 03/17/25 Unknown Rx orthotics allopurinol 100 mg tablet 100 mg PO DAILY 03/10/25 03/17/25 Unknown History ezetimibe 10 mg tablet 10 mg PO DAILY 03/10/25 03/17/25 Unknown History famotidine 20 mg tablet 20 mg PO BID 03/10/25 03/17/25 Unknown History gabapentin 300 mg capsule 300 mg PO TID 03/10/25 03/17/25 Unknown History amoxicillin 875 mg-potassium 1 tab PO Q12H 14 days #28 tabs 03/13/25 03/17/25 Unknown Rx clavulanate 125 mg tablet bisacodyl 5 mg tablet,delayed 5 mg PO BID 30 days #60 tabs 03/13/25 03/17/25 Unknown Rx release (Dulcolax (bisacodyl)) tramadol 50 mg tablet 50 mg PO BID PRN pain 15 days #30 03/13/25 03/17/25 Unknown Rx tabs Allergies Allergy/AdvReac Type Severity Reaction Status Date / Time Sulfa (Sulfonamide Allergy ALGY-Rash Verified 03/21/25 12:41 Antibiotics) PFSH Acute PFSH: Medical History No pertinent past medical history Social History Smoking and tobacco/nicotine status: former use of tobacco/nicotine Vitals/I&O/Wt Last Vital Signs Temp 98.9 F 03/21/25 12:39 Pulse 96 03/21/25 12:39 Resp 16 03/21/25 12:39 BP 113/72 03/21/25 12:39 Pulse Ox 94 03/21/25 12:39 O2 Del Method Room Air 03/21/25 12:39 03/20/25 03/21/25 03/21/25 22:59 06:59 14:59 Intake Total 0 / 0 Balance 0 / 0 Weight last 48 hrs Weight 270 lb Physical Exam Narrative: Chest: Unlabored breathing room air. No lymphadenopathy. Heart: Regular rate and rhythm. Abdomen: Soft, nontender, nondistended. No masses or lymphadenopathy. Drain output is serous. Mild cellulitis around drain site. Data 03/21/25 14:41 03/21/25 14:41 A&P Assessment and plan (1) Post-operative pain: (2) Perforated appendicitis: Plan 54-year-old male with perforated appendicitis status post diagnostic laparoscopy and peritoneal drain placement. No abdominal pain. Drain is serous. Does have mild cellulitis around the drain site. Still on antibiotics. Instructed to follow-up early next week with me in clinic. PDMP PDMP Reviewed: Not Reviewed Coding Level of Care Code 67262 Diagnoses Post-operative pain G89.18 Perforated appendicitis K35.32
[2025-03-21 14:41] VITALS: BP 121/76; PULSE 70; RESP 16; O2SAT 97
--- NOTE | 2025-03-21 14:42 | ED_ITS ---
HPI - Wound/Laceration 2 General: Chief Complaint: Wound/Laceration Stated Complaint: pus around drainage tube (03/10 surgery) Time Seen by Provider: 03/21/25 14:12 History of Present Illness: 54-year-old man with a history of recent appendectomy who presents to the emergency room with concern for drainage around his wound drain. Apparently he was found to have a ruptured appendix during surgery which required a abdominal drain. He has noticed some slightly worsening pain with movement recently and he says he has had some drainage from around the drainage tube. Also some redness surrounding this. No fevers. Some nausea but no vomiting. Related Data Home Medications ?Medication ?Instructions ?Recorded ?Confirmed omega 6-xce-gti-fish oil 300 1 cap PO DAILY 06/18/24 0 03/17/25 mg-1,000 mg capsule (Fish Oil) allopurinol 100 mg tablet 100 mg PO DAILY 03/10/25 ezetimibe 10 mg tablet 10 mg PO DAILY 03/10/2502/24 famotidine 20 mg tablet 20 mg PO BID 03/10/25 gabapentin 300 mg capsule 300 mg PO TID 03/10/2503/17 Previous Rx's ?Medication ?Instructions ?Recorded epinephrine 0.3 mg/0.3 mL 0.3 mg (0.3 mL) IM Q20M PRN 10/25/22 injection, auto-injector (EpiPen anaphylaxis #2 ea 2-Iglesia) cyclobenzaprine 10 mg tablet 10 mg PO TID PRN muscle s pasm #90 07/22/24 tabs diclofenac sodium 75 mg 75 mg PO BID PRN pain #60 ta bs 07/22/24 tablet,delayed release CAM walker #1 ea 02/11/25 orthopedic shoes and custom #2 ea 02/11/25 orthotics amoxicillin 875 mg-potassium 1 tab PO Q12H 14 days #28 tabs 03/13/25 clavulanate 125 mg tablet bisacodyl 5 mg tablet,delayed 5 mg PO BID 30 days #60 tabs 03/13/25 release (Dulcolax (bisacodyl)) tramadol 50 mg tablet 50 mg PO BID PRN pain 15 day s #30 03/13/25 tabs Allergies Allergy/AdvReac Type Severity Reaction Status Date / Time Sulfa (Sulfonamide Allergy ALGY-Rash Verified 03/21/25 12:41 Antibiotics) Review of Systems 2 Narrative: Constitutional symptoms: Negative except as documented in HPI. Skin symptoms: Negative except as documented in HPI. Eye symptoms: Negative except as documented in HPI. ENMT symptoms: Negative except as documented in HPI. Respiratory symptoms: Negative except as documented in HPI. Cardiovascular symptoms: Negative except as documented in HPI. Gastrointestinal symptoms: Negative except as documented in HPI. Genitourinary symptoms: Negative except as documented in HPI. Musculoskeletal symptoms: Negative except as documented in HPI. Neurologic symptoms: Negative except as documented in HPI. Psychiatric symptoms: Negative except as documented in HPI. Endocrine symptoms: Negative except as documented in HPI. PFSH ED 2 PFSH: Medical History No pertinent past medical history Social History Smoking and tobacco/nicotine status: former use of tobacco/nicotine Physical Exam 2 Narrative: EXAM NARRATIVE: General: Alert, no acute distress. Skin: Warm, dry. Head: Normocephalic, atraumatic. Neck: Supple, trachea midline. Eye: Extraocular movements are intact. Ears, nose, mouth and throat: mucosa moist. Cardiovascular: Regular, Normal peripheral perfusion. Respiratory: Lungs are clear to auscultation, respirations are non-labored, breath sounds are equal, Symmetrical chest wall expansion. Gastrointestinal: Soft, some erythema around drain tube on the left abdominal wall. No current discharge or drainage. Some diffuse abdominal tenderness Musculoskeletal: Normal ROM, no deformity. Neurological: Alert and oriented, No focal neurological deficit observed. Psychiatric: Cooperative, appropriate mood & affect. Course 2 Vital Signs: Vital signs: Vital Signs Temperature 98.9 F 03/21/25 12:39 Pulse Rate 70 03/21/25 16:25 Respiratory Rate 16 03/21/25 16:25 Blood Pressure 123/76 03/21/25 16:25 Pulse Oximetry 97 03/21/25 16:25 Oxygen Delivery Me thod Room Air 03/21/25 12:39 MDM - Wound/Laceration Medical Decision Making Medical decision making: Differential diagnosis including but not limited to and based on the above HPI, review of systems and physical exam: Would have concern for postoperative infection. Dr. Young was consulted and will see the patient. He recommended basic lab work orders placed to evaluate differential diagnosis based on the above differential, HPI and physical exam Consultation: I spoke Dr. Young evaluated the patient in the emergency room. He wants basic lab work and then will decide what to do with the patient. Lab Review: Laboratory results were reviewed and interpreted by myself the emergency room physician. Lab work was fairly unremarkable. Mild elevation in white count at 13,000. No renal failure. I discussed this with Dr. Young who feels this is appropriate postsurgical and recommends patient go home and follow-up with him in the near future. I reviewed the patient's medical record. Reexamination: Patient remained stable. No increased work of breathing. No altered mental status. No focal motor deficits. Assessment and plan: Postsurgical pain - Discharged home - Discussed plan with patient. Answered any questions. - Evaluation and treatment of this problem were appropriate in the emergency setting. Lab Data 03/21/25 14:41 03/21/25 14:41 Laboratory Results WBC 13.04 10^3/uL (3.29-11.43) H 03/21/25 14:41 RBC 4.12 10^6/uL (3.85-5.65) 03/21/25 14:41 Hgb 12.80 g/dL (11.27-16.99) 03/21/25 14:41 Hct 38.4 % (37-53) 03/21/25 14:41 MCV 93.2 fl (82-101) 03/21/25 14:41 MCH 31.1 pg (27-33) 03/21/25 14:41 MCHC 33.3 g/dL (30-55) 03/21/25 14:41 RDW 11.9 % (12.1-15.1) L 03/21/25 14:41 Plt Count 397 10^3/cmm (157-399) 03/21/25 14:41 MPV 9.1 fL (7.4-10.4) 03/21/25 14:41 Neut % (Auto) 73.8 % 03/21/25 14:41 Lymph % (Auto) 17.7 % 03/21/25 14:41 [place] % (Auto) 6.2 % 03/21/25 14:41 Eos % (Auto) 1.5 % 03/21/25 14:41 Baso % (Auto) 0.5 % 03/21/25 14:41 Neut # (Auto) 9.61 10^3/uL (1.8-7.7) H 03/21/25 14:41 Lymph # (Auto) 2.3 10^3/uL (0.8-4.8) 03/21/25 14:41 [place] # (Auto) 0.8 10^3/uL (0.2-0.9) 03/21/25 14:41 Eos # (Auto) 0.2 10^3/uL (0.0-0.8) 03/21/25 14:41 Baso # (Auto) 0.1 10^3/uL (0.0-0.1) 03/21/25 14:41 Nucleated RBC % (auto) 0 % 03/21/25 14:41 Nucleated RBCs # 0.0 /100WBC 03/21/25 14:41 Sodium 138 mmol/L (136-145) 03/21/25 14:41 Potassium 4.1 mmol/L (3.5-5.1) 03/21/25 14:41 Chloride 97 mmol/L (98-107) L 03/21/25 14:41 Carbon Dioxide 28 mmol/L (22-29) 03/21/25 14:41 Anion Gap 17.1 (5-19) 03/21/25 14:41 BUN 16 mg/dL (6-20) 03/21/25 14:41 Creatinine 1.0 mg/dL (0.7-1.2) 03/21/25 14:41 GFR Calculation 78.2 mL/min (90-130) L 03/21/25 14:41 Glucose 110 mg/dL (65-115) 03/21/25 14:41 Calculated Osmolality 288 mOsm/kg (285-295) 03/21/25 14:41 Calcium 9.8 mg/dL (8.5-10.5) 03/21/25 14:41 Total Bilirubin 0.2 mg/dL (0.15-1.2) 03/21/25 14:41 AST 19 U/L (0-40) 03/21/25 14:41 ALT 29 U/L (0-41) 03/21/25 14:41 Alkaline Phosphatase 90 U/L (40-130) 03/21/25 14:41 C-Reactive Protein 68.9 mg/L (0.0-4.9) H 03/21/25 14:41 Total Protein 8.3 g/dL (6.6-8.7) 03/21/25 14:41 Albumin 4.2 g/dL (3.5-5.2) 03/21/25 14:41 Globulin 4.1 g/dL (1.3-4.6) 03/21/25 14:41 No radiology studies performed this visit Discharge Plan Discharge Patient Disposition: Home Clinical Impression: Post-operative pain Condition: Stable Prescriptions: No Action omega 4-wvk-zzv-fish oil [Fish Oil] 300-1,000 mg capsule 1 cap PO DAILY cyclobenzaprine 10 mg tablet 10 mg PO TID PRN (Reason: muscle spasm) Qty: 90 3RF diclofenac sodium 75 mg tablet,delayed release (DR/EC) 75 mg PO BID PRN (Reason: pain) Qty: 60 3RF (DME) orthopedic shoes and custom orthotics See Rx Instructions .Route .MEDSUPPLY Qty: 2 0RF Rx Instructions: As directed (DME) CAM walker See Rx Instructions .Route .MEDSUPPLY Qty: 1 0RF Rx Instructions: As directed epinephrine [EpiPen 2-Iglesia] 0.3 mg/0.3 mL auto-injector 0.3 mg IM Q20M PRN (Reason: anaphylaxis) Qty: 2 0RF Rx Instructions: not to exceed 6 doses per episode allopurinol 100 mg Tablet 100 mg PO DAILY famotidine 20 mg Tablet 20 mg PO BID gabapentin 300 mg capsule 300 mg PO TID ezetimibe 10 mg Tablet 10 mg PO DAILY amoxicillin-pot clavulanate 875-125 mg tablet 1 tab PO Q12H 14 Days Qty: 28 0RF bisacodyl [Dulcolax (bisacodyl)] 5 mg tablet,delayed release (DR/EC) 5 mg PO BID 30 Days Qty: 60 0RF tramadol 50 mg tablet 50 mg PO BID PRN (Reason: pain) 15 Days Qty: 30 0RF Discharge Orders: Discharge ED (Routine); Ordered 03/21/25 Ordered By: Joy Jade Referrals: Clair Jones MD [Primary Care Provider, Family Practice] Patient Instructions: Opioid Safety, Pain Management, Patient Portal & Roe Instructions Activity Restrictions/Additional Instructions: Please follow-up with Dr. Young as instructed. If you develop worsening pain or fevers please return to the emergency room or follow-up with him sooner. Thank you for choosing [facility] for your healthcare needs today. You have been screened and evaluated and felt safe for discharge. Health conditions do change or evolve sometimes and as such it is important that you follow up with your Primary Doctor to be re checked, 3-5 days is a general good time frame for follow up. You are always welcome to return to the ED for re assessment if your symptoms are worsening or you have new concerns Print Language: Burundian Coding Level of Care Code ED Data Processing Consultant for Noah Clayton
[2025-03-21 14:48] LABS: Basophils # 0.1 10^3/uL (0.0-0.1); Basophils % 0.5 %; Eosinophils # 0.2 10^3/uL (0.0-0.8); Eosinophils % 1.5 %; Hematocrit 38.4 % (37-53); Lymphocytes # 2.3 10^3/uL (0.8-4.8); Lymphocytes % 17.7 %; Mean Corpuscular HGB Conc 33.3 g/dL (30-55); Mean Corpuscular Hemoglobin 31.1 pg (27-33); Mean Corpuscular Volume 93.2 fl (82-101); Mean Platelet Volume 9.1 fL (7.4-10.4); Monocytes # 0.8 10^3/uL (0.2-0.9); Monocytes % 6.2 %; Neutrophils # 9.61 10^3/uL (1.8-7.7); Neutrophils % 73.8 %; Nucleated Red Blood Cells % 0 %; Platelet Count 397 10^3/cmm (157-399); Red Blood Count 4.12 10^6/uL (3.85-5.65); Red Cell Distribution Width 11.9 % (12.1-15.1); White Blood Count 13.04 10^3/uL (3.29-11.43)
[2025-03-21 14:58] LABS: Alanine Aminotransferase 29 U/L (0-41); Albumin Level 4.2 g/dL (3.5-5.2); Alkaline Phosphatase 90 U/L (40-130); Anion Gap 17.1 (5-19); Aspartate Amino Transferase 19 U/L (0-40); Blood Urea Nitrogen 16 mg/dL (6-20); C Reactive Protein 68.9 mg/L (0.0-4.9); Calcium 9.8 mg/dL (8.5-10.5); Carbon Dioxide 28 mmol/L (22-29); Chloride 97 mmol/L (98-107); Globulin 4.1 g/dL (1.3-4.6); Glomerular Filtration Rate 78.2 mL/min (90-130); Glucose 110 mg/dL (65-115); Osmolality Calculated 288 mOsm/kg (285-295); Potassium 4.1 mmol/L (3.5-5.1); Sodium 138 mmol/L (136-145); Total Bilirubin 0.2 mg/dL (0.15-1.2); Total Protein 8.3 g/dL (6.6-8.7)
[2025-03-21 15:33] VITALS: BP 135/75; PULSE 66; RESP 16; O2SAT 96
--- NOTE | 2025-03-21 16:15 | PC.PHAR ---
[facility] 03/21/25 4:15pm
[2025-03-21 16:25] VITALS: BP 123/76; PULSE 70; RESP 16; O2SAT 97
== END 2025-03-21 16:29 | disposition home or self-care (01) ==
PROVIDERS: Emergency Provider Emergency Medicine; PCP Family Medicine
DX: G89.18 Other acute postprocedural pain (principal); Z87.891 Personal history of nicotine dependence
CPT/HCPCS: 36415; 80053; 85025; 86140; 99283

== ENCOUNTER 2025-03-27 09:49 | Outpatient (CLI) | payer OTHER, SELFPAY ==
--- NOTE | 2025-03-27 10:15 | CT_ITS ---
WS: [id number] CT ABDOMEN AND PELVIS WITH CONTRAST HISTORY: abdominal pain, surgical drain RIGHT lower quadrant. TECHNIQUE: Imaging performed of the abdomen and pelvis with IV contrast. Single phase imaging of the abdomen. Coronal and sagittal reformats are submitted. All CT scans at [facility] use at least one of these dose optimization techniques: automated exposure control; mA and/or kV adjustment per patient size (includes targeted exams where dose is matched to clinical indication); or iterative reconstruction. IV CONTRAST: Omnipaque 350; 100 mL IV. Oral contrast: No DLP: 918.03 mGy.cm COMPARISON: 03/10/2025 Lower thorax: Lung bases are clear. Heart is normal size. Small hiatal hernia. Liver/biliary system: Normal size with no intrahepatic dilatation. Gallbladder: Normal. No gallstones or wall thickening. No pericholecystic fluid. Pancreas: Normal size pancreas and pancreatic duct. No adjacent inflammation. Spleen: Normal size spleen. No mass or infarct. Adrenal glands: Normal. Right kidney: No obstruction. Mid to distal RIGHT ureter is very slightly dilated. This may be just secondary to the inflammatory changes associated with the appendix in the RIGHT lower quadrant. No obstruction. Very slight perinephric stranding. Left kidney: Normal. Aorta: Normal. Lymphadenopathy: None. Free fluid: There is a small amount of free fluid deep in the pelvis posterior to the bladder. GI tract: Peritoneal drain is placed with the tip terminating in the RIGHT lower quadrant adjacent to the cecum. Moderate amount of inflammation in the RIGHT lower quadrant surrounding the cecum and an abnormal appendix. Phlegmonous changes in the pericecal fat. The appendix is dilated and mildly hyperemic measuring up to 7 mm. No abscess. There is a single focus of air which is difficult to confirm intraluminal location. This is very close to the wall and lumen of the cecum. No additional foci of air. Mild wall thickening and enhancement of the cecal tip. Increased fecal material in the cecum and a scending colon. Abdominal wall: Fat containing umbilical hernia. Pelvis: Tiny moderate free fluid in the pelvis. Bones: Unremarkable. CT/CT abdomen pelvis w con* [id number] IMPRESSION: 1. Moderate inflammatory process centered in the RIGHT lower quadrant surround ing the cecal tip and the appendix. There is a large amount of soft tissue infl ammation. Appendix is hyperemic and slightly dilated to 7 mm. Less fluid disten tion of the appendix as compared to 03/10/2025. CT evidence for appendicitis was present on the prior CT. No abscess. 2. Peritoneal drain terminates in the RIGHT lower quadrant. There is a small a mount of fluid at the drain tip. No abscess. 3. Small amount of free fluid in the pelvis.
[2025-03-27] MEDS: iohexol 350 mg/mL 500 mL Btl (per mL) IV (10:32)
== END 2025-03-27 09:50 | disposition home or self-care (01) ==
LOC: RAD 09:50
PROVIDERS: PCP Family Medicine; Visit Provider Student in an Organized Health Care Education/Training Program
DX: R10.9 Unspecified abdominal pain (principal); G89.18 Other acute postprocedural pain; K44.9 Diaphragmatic hernia without obstruction or gangrene; R93.421 Abnormal radiologic findings on diagnostic imaging of right kidney; Z96.89 Presence of other specified functional implants; K38.9 Disease of appendix, unspecified; R93.3 Abnormal findings on diagnostic imaging of other parts of digestive tract; K56.41 Fecal impaction; K35.80 Unspecified acute appendicitis; M79.89 Other specified soft tissue disorders; K35.32 Acute appendicitis with perforation, localized peritonitis, and gangrene, without abscess
CPT/HCPCS: 36415; 74177; 85025; 99214

== ENCOUNTER → 2025-03-31 14:31 | Outpatient (BNVA) | payer OTHER, SELFPAY | PROVIDERS: PCP Family Medicine; Visit Provider Podiatrist Foot & Ankle Surgery | DX: S92.211A Displaced fracture of cuboid bone of right foot, initial encounter for closed fracture (principal); M20.21 Hallux rigidus, right foot; X58.XXXA Exposure to other specified factors, initial encounter | CPT/HCPCS: 73630; 99214 ==

== ENCOUNTER → 2025-06-03 14:47 | Outpatient (BNVA) | payer OTHER, SELFPAY | PROVIDERS: PCP Family Medicine; Visit Provider Podiatrist Foot & Ankle Surgery | DX: S92.211A Displaced fracture of cuboid bone of right foot, initial encounter for closed fracture (principal); M20.21 Hallux rigidus, right foot; X58.XXXA Exposure to other specified factors, initial encounter | CPT/HCPCS: 99213 ==